=== PATIENT | female | born 1965 | race Caucasian/White ===

== ENCOUNTER 2023-06-20 09:49 | Emergency (ER) | payer OTHER, SELFPAY ==
[2023-06-20 09:50] VITALS: BP 90/76; PULSE 84; RESP 16; TEMP 36.7; O2SAT 97; BMI 26.6
[2023-06-20 09:52] VITALS: BP 90/76; PULSE 84; RESP 16; TEMP 36.7; O2SAT 98
--- NOTE | 2023-06-20 10:09 | CT_ITS ---
STUDY: CT ABDOMEN AND PELVIS WITH CONTRAST REASON FOR EXAM: Female, 58 years old. 3 week history of lower abdominal pain. Recurrent UTI. RADIATION DOSAGE (If Supplied By Facility): CTDIvol = ( 13.44 ) mGy, DLP = ( 832.93 ) mGycm TECHNIQUE: Transaxial images were obtained from the dome of the diaphragm to the symphysis pubis without oral contrast. Oral and amp; IV Gastrografin and amp; 100mL Isovue-300 was administered. Sagittal and coronal images were reconstructed. Individualized dose optimization techniques were used for this CT. COMPARISON: None. FINDINGS: Increased linear markings with areas of confluence at the lung bases more prominent on the left side. The visualized portions of the heart are within normal limits. Normal liver. I suspect tiny layering gallstones along the dependent portion of the gallbladder lumen. Normal spleen. Normal pancreas. Normal bilateral adrenal glands. Normal right kidney. Normal left kidney. Normal visualized stomach. Normal small intestine. Normal colon. The appendix is visualized and appears normal. Normal abdominal aorta. Normal inferior vena cava. Normal retroperitoneum. There is congestion of the mesenteric fat in the region of the root of the mesentery. Mild inflammatory changes seen in the jejunal loops in the left midabdomen. Normal urinary bladder. Diffuse heterogeneous enlargement of the uterus. There is a 6.2 cm x 4.7 cm complex mass in the fundal portion of uterus. This may represent a degenerating fibroid. A neoplastic process cannot be excluded. Correlation with pelvic ultrasound recommended. Small amount of free fluid is seen in the cul-de-sac. Normal abdominal wall. There are degenerative changes of the visualized lumbar spine. Minimal anterior listhesis of L5 on S1 without spondylolysis. Facet joint osteoarthritis. CT/Abdomen/Pelvis WITH Contrast IMPRESSION: Mild degree of atelectasis at the lung bases worse on the left side. Questionable small gallstones along the dependent portion of the gallbladder lumen. Heterogeneous enlargement of the uterus with complex mass in the region of the fundal portion. Correlation with pelvic sonogram is recommended. Small amount of free fluid in the cul-de-sac. Increased markings in the mesenteric fat of the root of the mesentery with the findings suggest mild inflammatory changes in the small bowel loops in the mid left abdomen. Electronically Signed: Anjel Campbell MD at 12:21 EDT ,
--- NOTE | 2023-06-20 10:10 | ED.VIS.GI ---
HPI HPI - GI History of Present Illness Chief Complaint: Abd Pain Informant: patient Abdominal Pain/Flank Pain Onset: Weeks (3) Context: Gradual Onset Timing: Waxes and wanes Quality: Aching and Dull Location: RLQ and LLQ Worsened by: - (Palpation) Relieved by: Nothing Nausea/Vomiting/Emesis GI Symptom: Positive for Nausea; Negative for Vomiting Diarrhea/Melena/Hematochezia GI Symptom: Negative for Diarrhea, Melena or Hematochezia Associated Symptoms Associated Symptoms: Positive for Dysuria; Negative for Frequency or Hematuria Narrative Narrative: Patient presents with abdominal pain that has been waxing and waning over the past 3 weeks. Patient states she originally went to the urgent care and was diagnosed with a urinary tract infection. Patient states her symptoms improved while she was taking the antibiotic. Patient states that after she completed the antibiotic, her symptoms started to gradually get worse again. Patient states her pain is mainly over the lower abdomen. Patient states it is worse with pressing on it. Patient states it is better with rest. Patient admits to some nausea but denies any vomiting. Patient denies any diarrhea, melena, or hematochezia. Patient admits to some mild dysuria. Patient denies any hematuria or frequency. PFSH PFSH Medical History no medical history no medical history Home Medications cephalexin 500 mg capsule 500 mg PO Q6 #28 CAPSULES 06/20/23 [Rx Last Taken Unknown] Allergy/AdvReac Type Severity Reaction Status Date / Time No Known Allergies Allergy Verified 06/20/23 09:53 Surgical History no surgical history no surgical history Social History Smoking Status: Never smoker ROS ROS ED Constitutional Constitutional ED: Reports fever(s) and subjective; Denies chills Eyes Eyes: Denies blurry vision or change in vision ENT ENT ED: Denies rhinorrhea or sore throat Cardiovascular Cardiovascular: Denies chest pain or palpitations Respiratory/Chest Respiratory/Chest: Denies cough or dyspnea Gastrointestinal Gastrointestinal: Reports abdominal pain and nausea; Denies diarrhea, melena or vomiting Genitourinary Genitourinary ED: Reports dysuria; Denies hematuria Musculoskeletal Musculoskeletal: Denies back pain or neck pain Integumentary Denies abscess or rash Neurologic Neurologic: Denies headache(s) or weakness Allergic/Immunologic Allergic/Immunologic ED: Denies mouth swelling or urticaria EXAM Physical Exam Const Vital Signs: 06/20/23 09:50 06/20/23 09:52 06/20/23 10:52 Temperature 98.1 F 98.1 F 97.6 F L Temperature Source Oral Temporal Temporal Pulse Rate 84 84 81 Respiratory Rate 16 16 14 Blood Pressure 90/76 90/76 133/71 H Blood Pressure Mean 80 80 91 Pulse Ox 97 98 100 Oxygen Delivery Method Room Air Room Air Room Air 06/20/23 11:50 06/20/23 13:00 Temperature Temperature Source Pulse Rate 81 81 Respiratory Rate 14 16 Blood Pressure 127/81 H 131/81 H Blood Pressure Mean 96 97 Pulse Ox 98 98 Oxygen Delivery Method Room Air Room Air Positive well nourished and well developed General Appearance ED: well developed and NAD HEENT Reports moist mucous membranes Neck supple and no JVD Resp normal respiratory effort and clear to auscultation bilaterally Effort and Inspection: Negative for respiratory distress Cardio regular rate and regular rhythm GI non-distended Palpation: soft and tender LLQ, RLQ, LUQ and suprapubic; Negative for guarding or rebound tenderness present Neuro CN's II-XII intact bilaterally, moves all extremities and no sensory deficits noted Sensorium / Orientation: alert Motor Exam: strength 5/5 throughout Psych mental status grossly normal and thought process normal MDM MDM MDM Narrative Medical decision making narrative: Differential diagnosis includes urinary tract infection, ovarian cyst, ureteral calculus, bowel obstruction, perforation, appendicitis, pancreatitis, and gastroenteritis. CT scan of the abdomen pelvis will be obtained to assess for appendicitis, bowel obstruction, perforation. CBC will be obtained to assess for leukocytosis and anemia. Comprehensive metabolic profile will be obtained to assess for hepatic function, renal function, and electrolyte abnormality. Lipase will be obtained to assess for pancreatitis. Urinalysis will be obtained to assess for urinary tract infection. Lab Data Attestation: I reviewed the patient's lab results. Lab results narrative: CBC was reviewed and was within normal limits. Comprehensive metabolic profile was reviewed and was essentially within normal limits. Lipase was reviewed and was normal at 21. Urinalysis was reviewed. Leukocyte esterase was 500 with 10-25 white blood cells and 4+ bacteria. Labs: Laboratory Results - last 24 hr 06/20/23 06/20/23 10:25 10:40 WBC 10.5 RBC 4.94 Hgb 13.8 Hct 42.5 MCV 86.0 MCH 27.9 MCHC 32.5 RDW Std Deviation 45.0 H RDW Coeff of Sneha 14.3 Plt Count 472 H MPV 10.0 Immature Gran % (Auto) 0.300 Neut % (Auto) 88.0 H Lymph % (Auto) 6.6 L Caswell % (Auto) 5.0 Eos % (Auto) 0.0 Baso % (Auto) 0.1 Absolute Neuts (auto) 9.2 H Absolute Lymphs (auto) 0.69 L Nucleated RBC % 0 Differential Comment SCANNED Sodium 138 Potassium 3.4 L Chloride 103 Carbon Dioxide 28.0 Anion Gap 7 BUN 19 H Creatinine 0.86 Estim Creat Clear Calc 77.25 Est GFR (MDRD) Af Amer 87 Est GFR (MDRD) Non-Af 72 BUN/Creatinine Ratio 22.1 H Glucose 146 H Calcium 9.4 Total Bilirubin 1.20 H AST 34 ALT 41 Alkaline Phosphatase 131 H Total Protein 7.8 Albumin 3.1 L Globulin 4.7 H Albumin/Globulin Ratio 0.7 L Lipase 21 Urine Color Yellow Urine Clarity Sl. Cloudy Urine pH 5.0 Ur Specific [place] 1.015 Urine Protein 30 H Urine Glucose (UA) Normal Urine Ketones Negative Urine Occult Blood 10 H Urine Nitrite Negative Urine Bilirubin 1 H Urine Urobilinogen 1 H Ur Leukocyte Esterase 500 H Urine RBC 0-5 SEEN Urine WBC 10-25 SEEN Ur Squamous Epith Cells 0-5 SEEN Urine Bacteria 4+ Urine Mucus 4+ Radiography Diagnostic Testing: Clinical Impression(s) from Imaging Studies Abdomen/Pelvis CT 06/20/23 10:09 IMPRESSION: Mild degree of atelectasis at the lung bases worse on the left side. Questionable small gallstones along the dependent portion of the gallbladder lumen. Heterogeneous enlargement of the uterus with complex mass in the region of the fundal portion. Correlation with pelvic sonogram is recommended. Small amount of free fluid in the cul-de-sac. Increased markings in the mesenteric fat of the root of the mesentery with the findings suggest mild inflammatory changes in the small bowel loops in the mid left abdomen. Electronically Signed: Anjel Campbell MD at 12:21 EDT , CT scan of the abdomen and pelvis was obtained. There is enlargement of the uterus with a likely uterine fibroid in the fundal portion. There is a small amount of free fluid in the cul-de-sac. There are some mild inflammatory changes in the small bowel loops of the left mid abdomen. There is no other acute abnormality noted. This was interpreted by the radiologist and was also independently reviewed by myself. Additional Tests and Interventions Additional Tests or Interventions: Urine culture was ordered. Treatment and Re-Evaluation :: Patient was given IV fluids, Zofran, and morphine. Patient was advised of her findings. Patient was feeling better on reevaluation. Patient was given a dose of Keflex here. Patient was given a prescription for Keflex. Patient was instructed to follow-up with her primary care physician in 5 to 7 days. Patient understood and was agreeable with the plan. All questions were answered. Discharge Plan Triage Chief Complaint: Abd Pain ED Provider: Petr Landaverde Dx/Rx/DC Orders Clinical Impression: Urinary tract infection, Uterine fibroid Instructions: ED Cystitis Female Adult Prescriptions: New cephalexin [cephalexin] 500 mg capsule 500 mg PO Q6 Qty: 28 0RF Primary Care Provider: Care Physician,No Primary Referrals: Zuleika Asher MD [Med Staff - Global Coordinator] - 5-7 Days Care Physician,No Primary [Primary Care Provider] - Disposition Disposition: Home, Self Care
[2023-06-20] MEDS: 0.9% Normal Saline (1000mL) 1,000 ML 1000 ML IV (10:33)
[2023-06-20 10:49] LABS: Color, Urine Yellow (Yellow); Glucose, Dipstick Normal (Normal); Ketone-Dipstick Negative (Negative); Leukocyte Esterase-Dipstick 500 /ul (Negative); Nitrite-Dipstick Negative (Negative); Occult Blood-Urine 10 /ul (Negative); Protein-Dipstick 30 mg/dl (Negative); Specific Gravity, Urine 1.015 (1.002-1.030); Urine Bilirubin Dipstick 1 mg/dL (Negative); Urine Clarity Sl. Cloudy (Clear); Urine Urobilinogen 1 mg/dl (Normal)
[2023-06-20 10:49] LABS: Absolute Lymphocyte Count 0.69 X10^3/uL (0.83-4.51); Absolute Neutrophil Count 9.2 X10^3/uL (2.0-7.7); Basophil# 0.01 X10^3/uL; Basophil% 0.1 % (0-1); Hematocrit 42.5 % (37-47); Hemoglobin 13.8 g/dL (12.0-15.0); Lymphocyte # 0.69 X10^3/ul (0.83-4.51); Lymphocyte % 6.6 % (19-41); Mean Corp Hgb Conc 32.5 g/dL (32-36); Mean Corpuscular Hgb 27.9 pg (27.0-32.0); Monocyte# 0.52 X10^3/uL; NRBC Flagged by Analyzer 0 % (0-5); Neutrophil # 9.21 X10^3/uL (2.7-7.7); POSITIVE MORPHOLOGY YES; Platelet Count 472 K/mm3 (150-450); RBC Distribution Width CV 14.3 % (11.6-14.6); Red Blood Count 4.94 M/mm3 (4.2-5.4); White Blood Count 10.5 K/mm3 (4.4-11.0)
[2023-06-20 10:52] VITALS: BP 133/71; PULSE 81; RESP 14; TEMP 36.4; O2SAT 100
[2023-06-20 10:54] LABS: Differential Indicated SCAN CRITERIA MET
[2023-06-20 11:02] LABS: Bacteria 4+ /hpf (None Seen); Mucous, Urine 4+ /hpf (<or=2+); Red Blood Cells-Urine 0-5 SEEN /hpf (0-5); Squamous Epithelial Cells - UA 0-5 SEEN /hpf (5-10); White Blood Cells 10-25 SEEN /hpf (0-5)
[2023-06-20 11:08] LABS: ALB/GLOB Ratio 0.7 RATIO (0.9-2.4); AST(SGOT) 34 U/L (15-37); Alanine Aminotransfer ALT/SGPT 41 U/L (13-56); Albumin, Serum 3.1 g/dL (3.2-5.0); Alkaline Phosphatase 131 U/L (45-117); Anion Gap 7 (5-15); BUN 19 mg/dL (7-18); BUN/Creat Ratio 22.1 RATIO (10-20); Calcium,Total 9.4 mg/dL (8.5-10.1); Chloride 103 mmol/L (98-107); Creatinine, Serum 0.86 mg/dL (0.55-1.02); EST Glomerular Filtration Rate 72 mL/min (>60); Est Glom Filt Rate - Afr Amer 87 mL/min (>60); Estimated Creatinine Clearance 77.25 ml/min; Globulin 4.7 g/dL (2.2-4.2); Glucose 146 mg/dL (74-106); Lipase 21 U/L (13-75); Potassium 3.4 mmol/L (3.5-5.1); Protein, Total 7.8 g/dL (6.4-8.2); Sodium Level 138 mmol/L (136-145)
[2023-06-20 11:21] LABS: Differential Comment SCANNED
[2023-06-20 11:50] VITALS: BP 127/81; PULSE 81; RESP 14; O2SAT 98
[2023-06-20 13:00] VITALS: BP 131/81; PULSE 81; RESP 16; O2SAT 98
[2023-06-20] MEDS: Cephalexin 500 MG Capsule PO (13:29)
[2023-06-20 13:30] VITALS: BP 145/77; PULSE 80; RESP 14; TEMP 36.8; O2SAT 98
== END 2023-06-20 13:31 | disposition home or self-care (01) ==
PROVIDERS: Emergency Provider Emergency Medicine; Visit Provider Emergency Medicine
DX: N39.0 Urinary tract infection, site not specified (principal); D25.9 Leiomyoma of uterus, unspecified; R11.0 Nausea
CPT/HCPCS: 74177; 80053; 81001; 83690; 85025; 87086; 87088; 96361; 96374; 96375; 99283; J7030; Q9967; A4216; J2405

== ENCOUNTER → 2023-06-28 | Outpatient (CLI) | payer SELFPAY | END | disposition home or self-care (01) | LOC: BFHLAB 09:14 → LABSPEC 09:22 | PROVIDERS: PCP Nurse Practitioner Family; Referring Provider Nurse Practitioner Family; Visit Provider Nurse Practitioner Family | DX: N39.0 Urinary tract infection, site not specified (principal) | CPT/HCPCS: 87086; 87088 ==

== ENCOUNTER → 2023-07-04 | Outpatient (CLI) | payer SELFPAY ==
--- NOTE | 2023-07-04 18:05 | US_ITS ---
STUDY: ULTRASOUND OF THE FEMALE PELVIS - COMPLETE REASON FOR EXAM: Female, 58 years old. Pelvic mass seen on prior CT scan. LMP: Patient is postmenopausal. TECHNIQUE: Transabdominal and Transvaginal TECHNICAL QUALITY: Adequate. COMPARISON: Comparison is made with prior CT scan of the abdomen and pelvis dated June 20, 2023. FINDINGS: The uterus is anteverted and is in a midline position. The uterus measures 9.4 cm x 7.9 cm x 6.2 cm. There is a Nabothian cyst of the cervix. The endometrium measures 4 mm in thickness, and is hyperechoic. There is evidence of a 1 cm x 0.6 cm x 0.4 cm endometrial polyp. Small amount of endometrial fluid is seen. 3 uterine fibroids are seen. The largest measures 3.2 cm x 3.1 cm x 2.8 cm. I.U.D. - The patient does not have an I.U.D. The right ovary is visualized. The right ovary measures 6 cm x 5.5 cm x 3.8 cm. There is a 4 cm x 3.7 cm x 3.3 cm septated cyst in the right ovary. There is no visualized right adnexal mass or complex lesion. There is normal arterial and normal venous vascularity. The left ovary is non-visualized. There is no fluid in the cul-de-sac. The pre void volume of the bladder was 124 ml. US/Pelvic (Non ) IMPRESSION: Enlarged fibroid uterus as described. Endometrial polyp and small fluid collection is seen within the endometrium. 4 cm x 3.7 cm x 3.3 cm septated cyst in the right ovary. Electronically Signed: Anjel Campbell MD at 14:38 EDT ,
== END | disposition home or self-care (01) ==
PROVIDERS: PCP Nurse Practitioner Family; Referring Provider Nurse Practitioner Family; Visit Provider Nurse Practitioner Family
DX: N85.8 Other specified noninflammatory disorders of uterus (principal)
CPT/HCPCS: 76856

== ENCOUNTER → 2023-08-02 | Outpatient (CLI) | payer SELFPAY | END | disposition home or self-care (01) | LOC: LABSPEC 13:13 | PROVIDERS: PCP Nurse Practitioner Family; Referring Provider Nurse Practitioner Family; Visit Provider Nurse Practitioner Family | DX: N39.0 Urinary tract infection, site not specified (principal) | CPT/HCPCS: 87086; 87088 ==

== ENCOUNTER → 2023-08-23 | Outpatient (CLI) | payer SELFPAY ==
--- NOTE | 2023-08-23 | CYSPIN_PTH ---
PATIENT: COLIN ALMEIDA LOC: [facility] U#:[id number] AGE/SX: 58/F ROOM: RE08/23/[address]: CIERRA Stephen : 1965 BED: DIS: 08/23/2023 SPEC #: [id number] RECD: 08/23/23 16:00 STATUS: ANSHU CORONATanesha #: [id number] DEONTE: 08/23/23 00:[address]: Latrice Calles DEPT: CYTOLOGY RECD BY: Prakash Bush Tissues: Urine Procedures: Pap Stain (control) Special Stain Group II Cytospin Fluid HEADER OPERATION: Not noted PRE-OP DIAGNOSIS: Hematuria TISSUE SUBMITTED: Urine for cytology DIAGNOSIS CYTOLOGY Urine for cytology (cytospin): Negative for high grade urothelial carcinoma (NHGUC), Callie System Category II. See comment. VICTORINO/ 08/25/2023 COMMENT Clinical correlation and appropriate follow up are necessary. The Callie System for urine cytology diagnostic categorization was used in the evaluation of this case. CYTOLOGY STUDY Slides are reviewed. CYTOLOGY GROSS Received is 35.5 ml of nannette-hazy fluid labeled with the patient's name and and designated per the requisition as urine. Submitted for cytology preparation. 08/25/2023 TC:5 CPT: 69745
[2023-08-23 17:50] LABS: Cytology, Body Fluid / CSF SEE PATHOLOGY REPORT
== END | disposition home or self-care (01) ==
PROVIDERS: PCP Nurse Practitioner Family; Referring Provider Nurse Practitioner Family; Visit Provider Nurse Practitioner Family
DX: R31.9 Hematuria, unspecified (principal)
CPT/HCPCS: 87086; 87088; 88108; 88313

== ENCOUNTER → 2023-09-19 | Outpatient (CLI) | payer SELFPAY ==
[2023-09-19 15:33] LABS: Absolute Lymphocyte Count 1.07 X10^3/uL (0.83-4.51); Absolute Neutrophil Count 11.4 X10^3/uL (2.0-7.7); Basophil# 0.04 X10^3/uL; Basophil% 0.3 % (0-1); Eosinophil# 0.07 X10^3/uL; Eosinophils% 0.5 % (0-5); Hematocrit 28.1 % (37-47); Hemoglobin 8.7 g/dL (12.0-15.0); Lymphocyte # 1.07 X10^3/ul (0.83-4.51); Mean Corpuscular Hgb 23.9 pg (27.0-32.0); Mean Corpuscular Volume 77.2 fL (81-99); Mean Platelet Vol. 9.6 fl (6.2-12.0); Monocyte# 0.62 X10^3/uL; Monocyte% 4.6 % (0-10); NRBC Flagged by Analyzer 0 % (0-5); Neutrophil # 11.44 X10^3/uL (2.7-7.7); Neutrophil % 85.5 % (47-70); Platelet Count 748 K/mm3 (150-450); RBC Distribution Width CV 16.5 % (11.6-14.6); RBC Distribution Width SD 46.1 fl (35.1-43.9); Red Blood Count 3.64 M/mm3 (4.2-5.4); White Blood Count 13.4 K/mm3 (4.4-11.0)
[2023-09-19 15:40] LABS: Vitamin B12 652 pg/mL (211-911)
[2023-09-19 15:45] LABS: ALB/GLOB Ratio 0.5 RATIO (0.9-2.4); AST(SGOT) 57 U/L (15-37); Alanine Aminotransfer ALT/SGPT 67 U/L (13-56); Alkaline Phosphatase 220 U/L (45-117); Anion Gap 8 (5-15); BUN 13 mg/dL (7-18); BUN/Creat Ratio 19.9 RATIO (10-20); Calcium,Total 8.6 mg/dL (8.5-10.1); Chloride 98 mmol/L (98-107); Creatinine, Serum 0.65 mg/dL (0.55-1.02); EST Glomerular Filtration Rate 99 mL/min (>60); Est Glom Filt Rate - Afr Amer 120 mL/min (>60); Ferritin 715 ng/mL (8-252); Globulin 4.3 g/dL (2.2-4.2); Glucose 105 mg/dL (74-106); Iron 11 ug/dL (50-170); Potassium 3.1 mmol/L (3.5-5.1); Protein, Total 6.3 g/dL (6.4-8.2); Sodium Level 137 mmol/L (136-145); T4 Free Direct 1.21 ng/dL (0.76-1.46); Thyroid Stim Hormone (TSH) 1.46 uIU/mL (0.358-3.74)
[2023-09-21 14:10] LABS: ANTINUCLEAR ANTIBODIES DIRECT Negative (Negative)
== END | disposition home or self-care (01) ==
LOC: BFHLAB 13:36
PROVIDERS: PCP Nurse Practitioner Family; Referring Provider Nurse Practitioner Family; Visit Provider Nurse Practitioner Family
DX: R53.83 Other fatigue (principal); Z83.2 Family history of diseases of the blood and blood-forming organs and certain disorders involving the immune mechanism
CPT/HCPCS: 36415; 80053; 82306; 82607; 82728; 83540; 84439; 84443; 85025; 86038; 86225; 86235

== ENCOUNTER → 2023-09-25 | Outpatient (CLI) | payer SELFPAY ==
--- NOTE | 2023-09-25 07:19 | CT_ITS ---
STUDY: CT CHEST, ABDOMEN T PELVIS WITH CONTRAST REASON FOR EXAM: Female, 58 years old. ABNORMAL LIVER ENZYMES NEW ONSENT ANEMIA, COUGH, FATIGUE RADIATION DOSAGE (If Supplied By Facility): CTDIvol = ( 11.46 ) mGy, DLP = ( 1050.37 ) mGycm TECHNIQUE: Transaxial imaging was performed following intravenous administration of Oral and amp;amp; IV Readi-CAT and amp;amp; 100mL Isovue-300. Multiplanar coronal and sagittal images were reformatted. Individualized dose optimization techniques were used for this CT. COMPARISON: Comparison is made with prior CT scan abdomen pelvis dated June 20, 2023. FINDINGS: CHEST There is a moderate-sized right pleural effusion with compressive atelectasis in the right lower lobe. Calcified granuloma in the posterior aspect of the right upper lobe. No coronary calcification is seen. Normal mediastinum. Normal hilar regions. Normal unenhanced pulmonary arteries. Normal aorta arch and descending thoracic aorta. There are multi-level degenerative changes of the thoracic spine. Multiple hypodense nodules are seen scattered throughout the right and left lobes of the liver suggestive of metastatic deposits. ABDOMEN There now is evidence of a 7.8 cm x 7.3 cm x 6.7 cm complex mass in the posterior superior aspect of the right lobe of the liver. A similar appearing heterogeneous mass measuring 6 cm x 4.9 cm is seen in the inferior lateral aspect of the right lobe of the liver. Metastatic deposits should be ruled out. The gallbladder is contracted. Normal spleen. Normal pancreas. Normal bilateral adrenal glands. Normal right kidney. Normal left kidney. Normal visualized stomach. Normal small intestine. Normal colon. The appendix is visualized and appears normal. Normal abdominal aorta. Normal inferior vena cava. There is small retroperitoneal lymphadenopathy with enlarged nodes no greater than 10mm in the short axis diameter. Normal abdominal wall. There are degenerative changes of the visualized lumbar spine. PELVIS Normal urinary bladder. Since prior study, there has been progressive increase in size of the complex mass in the right hemipelvis. A tiny air bubble seen along the anterior aspect of the mass. This may represent either a complex mass in the right ovary adjacent to the uterus. Heterogeneous appearance of the uterus with calcification. There is no pelvic fluid. There is no pelvic lymphadenopathy or mass lesion. CT/CT Chest, Abd, Pel w/Contrast IMPRESSION: Moderate size right pleural effusion with compressive atelectasis in the right lower lobe. New hepatic lesions as described. Metastatic deposits should be ruled out. Aggressive increase in size and heterogeneity of the right pelvic mass. An ovarian carcinoma should be ruled out. Electronically Signed: Anjel Campbell MD at 8:56 EDT ,
== END | disposition home or self-care (01) ==
LOC: CT 07:18
PROVIDERS: PCP Nurse Practitioner Family; Referring Provider Nurse Practitioner Family; Visit Provider Nurse Practitioner Family
DX: R74.8 Abnormal levels of other serum enzymes (principal); D64.9 Anemia, unspecified; R79.89 Other specified abnormal findings of blood chemistry; R53.83 Other fatigue; R05.9 Cough, unspecified
CPT/HCPCS: 71260; 74177; Q9967

== ENCOUNTER 2023-10-05 11:38 | Inpatient (IN) | payer SELFPAY ==
[2023-10-05] VITALS (11 sets, daily range): BP systolic 123–148; BP diastolic 66–105; PULSE 98–127; RESP 16–30; TEMP 36.5–38.3; O2SAT 92–96; BMI 23.1; BMI 23.6
--- NOTE | 2023-10-05 11:45 | EKG12_ITS ---
Test Reason : GENERAL Blood Pressure : / mmHG Vent. Rate : 102 BPM Atrial Rate : 102 BPM P-R Int : 136 ms QRS Dur : 078 ms QT Int : 350 ms P-R-T Axes : 066 -10 048 degrees QTc Int : 456 ms Sinus tachycardia Otherwise normal ECG No previous ECGs available Confirmed by ASHLEY KNIGHT, MARGARITA ([id number]), photograph editor JOSÉ MIGUEL HARPER ([id number]) on 10/13/2023 7:25:51 AM Referred By: Confirmed By:MILAD RAMIREZ MD
--- NOTE | 2023-10-05 11:49 | ED.RN ---
NO OLD EKGS
--- NOTE | 2023-10-05 11:56 | CT_ITS ---
STUDY: CT ABDOMEN AND PELVIS WITH CONTRAST REASON FOR EXAM: Female, 58 years old. Fever, suspect liver abscess, sepsis RADIATION DOSAGE (If Supplied By Facility): CTDIvol = ( 10.23 ) mGy, DLP = ( 586.14 ) mGycm TECHNIQUE: Transaxial images were obtained from the dome of the diaphragm to the symphysis pubis without oral contrast. IV 100mL Isovue-300 was administered. Sagittal and coronal images were reconstructed. Individualized dose optimization techniques were used for this CT. COMPARISON: Comparison is made with prior study dated June 20, 2023. FINDINGS: Moderate size right pleural effusion with right basilar atelectasis. Increased markings in the right middle lobe suggestive of atelectasis. The visualized portions of the heart are within normal limits. There are multiple accidents masses in the liver with several areas of the cystic changes suggestive of the hepatic abscesses. The largest measures 7.7 cm x 8 cm. This was recently diagnosed with the CT scan guided biopsy. The gallbladder is contracted. A tiny gallstone is seen within it. Normal spleen. Normal pancreas. Normal bilateral adrenal glands. Normal right kidney. Normal left kidney. Normal visualized stomach. Normal small intestine. Normal colon. The appendix is visualized and appears normal. Normal abdominal aorta. Normal inferior vena cava. Increased markings are seen within the omental and mesenteric fat. This may represent omental metastasis. A Pal catheter is seen within the urinary bladder. The urinary bladder is empty. There is a 7.9 cm x 6.7 cm predominantly cystic mass in the right adnexa. Tiny air bubbles are seen along its anterior aspect. Normal abdominal wall. Normal osseous structures. CT/Abdomen/Pelvis W IV Cont ONLY IMPRESSION: Findings suggestive of abscesses in the liver as described. Several tiny cystic changes are seen within the abscesses. Contracted gallbladder with a tiny stone. Complex mass in the right adnexa. Right pleural effusion with underlying atelectasis. Electronically Signed: Anjel Campbell MD at 13:37 EDT ,
--- NOTE | 2023-10-05 11:56 | RAD_ITS ---
STUDY: X-RAY CHEST REASON FOR EXAM: Female, 58 years old. Tachypnea, hypoxia TECHNIQUE: AP and lateral views of the chest. COMPARISON: None. FINDINGS: EKG electrodes are seen. Moderate size right pleural effusion with right basilar infiltration and/or atelectasis. Normal size heart. Normal mediastinum and ruthie. Normal visualized pulmonary arteries. Normal visualized aortic arch and descending thoracic aorta. Normal visualized thoracic spine. Normal visualized ribs, clavicles, and shoulders. There is no demonstrated abnormality of the visualized soft tissue structures of the upper abdomen. RAD/Chest PA and Lateral IMPRESSION: Moderate amount of right pleural effusion with right basilar infiltration and/or atelectasis. Electronically Signed: Anjel Campbell MD at 14:01 EDT ,
[2023-10-05 12:22] LABS: Absolute Lymphocyte Count 3.24 X10^3/uL (0.83-4.51); Absolute Neutrophil Count 14.3 X10^3/uL (2.0-7.7); Basophil# 0.06 X10^3/uL; Basophil% 0.3 % (0-1); Eosinophil# 0.05 X10^3/uL; Eosinophils% 0.3 % (0-5); Hematocrit 23.8 % (37-47); Hemoglobin 7.3 g/dL (12.0-15.0); Lymphocyte # 3.24 X10^3/ul (0.83-4.51); Lymphocyte % 16.7 % (19-41); Mean Corp Hgb Conc 30.7 g/dL (32-36); Mean Corpuscular Hgb 23.6 pg (27.0-32.0); Mean Platelet Vol. 9.2 fl (6.2-12.0); Monocyte# 1.33 X10^3/uL; Monocyte% 6.8 % (0-10); NRBC Flagged by Analyzer 0 % (0-5); Neutrophil # 14.32 X10^3/uL (2.7-7.7); Neutrophil % 73.7 % (47-70); Platelet Count 557 K/mm3 (150-450); RBC Distribution Width CV 18.1 % (11.6-14.6); RBC Distribution Width SD 49.6 fl (35.1-43.9); Red Blood Count 3.09 M/mm3 (4.2-5.4); White Blood Count 19.4 K/mm3 (4.4-11.0)
--- NOTE | 2023-10-05 12:23 | EDS_ITS ---
HPI History of Present Illness Chief Complaint: Abscess Detail of Chief Complaint: Hepatic abscess Informant: patient, family and other Onset/Context/Timing Onset: Today (Scheduled for a liver biopsy. According to nurse practitioner Dr. Li, the pathologist states findings consistent with abscess not malignancy) Context: - (Unknown) Timing: - (Patient has no complaint of pain) Quality: Generalized weakness and fatigue Location: Generalized Current Severity: Patient has no abdominal complaints. Worsened by: Unknown Relieved by: Unknown Associated Symptoms Associated Symptoms: Patient presently denies shortness of breath. She was hypoxic. Narrative Narrative: Patient is a 58-year-old woman diagnosed with ovarian cancer. CT obtained June 03, 2023 revealed mild degree of atelectasis at the lung bases worse on the left. There is concern for gallstone. Heterogeneous enlargement of the uterus with complex mass in the region of the fundus. Small amount of fluid noted in the cul-de-sac. There is also increased markings in the mesenteric fat at the root of the mesentery with findings suggestive of mild inflammatory changes. September 24 CT of the abdomen and pelvis revealed a moderate size right pleural effusion with compressive atelectasis in the right lower lobe and a new hepatic lesion and metastatic deposits need to be ruled out. There is an increased creased size and heterogenicity of the right pelvic mass which was described as aggressive. Concern for ovarian cancer. Patient was scheduled for biopsy of liver. Mellycalli Gonsalveswilliams's documentation was reviewed. Fluid that was removed was examined by Dr. Li, pathologist. She commented that findings are consistent with abscess and not malignancy. Of note patient's white count on September 26 was 21,000 with shift. Patient was placed on oxygen because she was hypoxic. This may be due to the fact that she has compressive atelectasis due to significant effusion on the right. This correlates with my exam which revealed diminished breath sounds on the right with decreased vocal fremitus questionable egophony. Patient denies fever or chills. Patient denies subjective fever. Patient denies shortness of breath. Patient denies cough. Patient denies abdominal pain, back pain or flank pain. Patient denies dysuria, frequency, urgency or hematuria. Patient denies color of her urine. Prior similar symptoms: Yes Recent Illness/Hospitalization: Yes [facility] Medical History Ovarian mass Pleural effusion Metastasis to liver Abdominal mass Home Medications ?Medication ?Instructions ?Recorded ?Last Taken ?Type biotin 1 mg capsule 1 mg PO DAILY 09/26/23 Unknown History cholecalciferol (vitamin D3) 50 50 mcg PO DAILY 09/26/23 Unknown History mcg (2,000 unit) capsule lactobacillus combination no.9 4 4,000 mmu cells PO DAILY 09/26/23 Unknown History billion cell capsule (Adult 50 Plus Probiotic) rhubarb root extract 4 mg tablet 4 mg PO DAILY 09/26/23 Unknown History (Estroven Complete Menopause Relief) turmeric 400 mg capsule 400 mg PO DAILY 09/26/23 Unknown History ferrous sulfate 325 mg (65 mg 325 mg PO BID 09/27/23 Unknown History iron) tablet (FeroSul) hormone balance 2 tab PO DAILY 09/27/23 Unknown History potassium 99 mg tablet 99 mg PO BID 09/27/23 Unknown History magnesium citrate 10/05/23 Unknown History Allergy/AdvReac Type Severity Reaction Status Date / Time No Known Allergies Allergy Verified 10/05/23 11:39 Family History Mother Cancer uterine Social History Smoking Status: Never smoker alcohol intake: never substance use type: does not use what type of physical activity do you participate in: walking ROS ROS ED Constitutional Constitutional ED: Reports weight loss; Denies chills, fever(s), subjective or sweats Eyes Eyes: Denies blurry vision or change in vision ENT ENT ED: Denies ear pain, rhinorrhea or sore throat Cardiovascular Cardiovascular: Denies chest pain, orthopnea, palpitations or paroxysmal nocturnal dyspnea Respiratory/Chest Respiratory/Chest: Reports dyspnea and dyspnea on exertion; Denies cough, orthopnea or paroxysmal nocturnal dyspnea Gastrointestinal Gastrointestinal: Denies abdominal pain, constipation, diarrhea, melena, nausea or vomiting Genitourinary Genitourinary ED: Denies dysuria, hematuria or urinary frequency Musculoskeletal Musculoskeletal: Denies arthralgias, back pain or myalgias Integumentary Reports other Details: Family commented that she appears pale. She I also believe she may be jaundiced. ; Denies rash Neurologic Neurologic: Reports weakness; Denies headache(s) or paresthesias Endocrine Endocrinology: Denies cold intolerance or heat intolerance Hematologic/Lymphatic Hematologic/Lymphatic: Reports systems reviewed and no addt'l complaints, except as documented EXAM Physical Exam Const Vital Signs: 10/05/23 11:39 10/05/23 11:44 10/05/23 11:45 Temperature 99.3 F H 99.3 F H Temperature Source Temporal Temporal Pulse Rate 99 99 Respiratory Rate 23 H 24 H Blood Pressure 127/79 H 123/75 H Blood Pressure Mean 95 91 Pulse Ox 94 93 Oxygen Delivery Method Room Air Room Air Room Air 10/05/23 12:44 10/05/23 13:00 10/05/23 13:39 Temperature 98 F 98 F Temperature Source Tympanic Tympanic Pulse Rate 103 H 102 H 102 H Respiratory Rate 30 H 30 H 28 H Blood Pressure 128/71 H 128/71 H 143/82 H Blood Pressure Mean 90 90 102 Pulse Ox 93 92 92 Oxygen Delivery Method Room Air Room Air Room Air 10/05/23 14:00 Temperature 97.8 F Temperature Source Tympanic Pulse Rate 102 H Respiratory Rate 26 H Blood Pressure 148/66 H Blood Pressure Mean 93 Pulse Ox 93 Oxygen Delivery Method Room Air Positive well nourished and well developed Constitutional Narrative: Patient appears ill. She is pale. She appears also jaundiced. Patient has abrasions to the dorsal side of her right hand and face. This was due to blunt trauma a couple of weeks ago. General Appearance ED: well developed and pallor HEENT Reports dry mucous membranes HEENT Narrative: Head is atraumatic normocephalic. Ears normal. Nares patent. Posterior pharynx unremarkable. Mouth ED: Yes dry mucous membranes Mouth: dry mucous membranes Eyes PERRL and EOMs intact bilaterally General Eye ED: Yes pale conjunctiva and scleral icterus Neck no lymphadenopathy, supple and no JVD Chest Wall inspection of chest normal and palpation of chest normal Resp No normal respiratory effort and No clear to auscultation bilaterally Resp Narrative: Markedly diminished breath sounds on the right. There is decreased vocal fremitus. Question of egophony. Breath sounds are much clear on the left. There is slight rales at the base on the left. There is no egophony noted. Cardio regular rate, regular rhythm, S1 normal heart sound, S2 normal heart sound and no murmurs GI normal to inspection, nondistended, normoactive bowel sounds, non-tender, non- distended and no masses; Negative for hepatosplenomegaly Back/Spine no CVA tenderness Extremity Extremity Narrative: Healing wounds from abrasions. There is no evidence infection. Neuro oriented x3, CN's II-XII intact bilaterally and no sensory deficits noted Neuro Narrative: Patient is awake but not alert. Psych mental status grossly normal Skin no rashes or lesions noted, No no wounds and No skin turgor normal General Skin Exam: jaundice and pallor; Negative for elasticity normal MDM MDM MDM Narrative Medical decision making narrative: Spoke to Mary radiology nurse. She informed me that Dr. Mccormick is concerned the samples that submitted for analysis did not reveal malignancy but abscess. Family had this multiple questions. They were answered. Patient would like to be transferred to the [facility] since her care is through the [facility]. Differential is abscess due to hematologic spread versus malignancy with necrosis and abscess. Sepsis order set was initiated. Patient started on piperacillin and tazobactam since she has no allergy to penicillin. Prior labs are reviewed. As noted her white count was elevated September 26. History & Record Review Additional record(s) reviewed:: Prior outpatient record (Documented HPI wilbur rative) and Prior labs (Documented under the laboratory data portion of the EMR) Lab Data Attestation: I reviewed the patient's lab results. Lab results narrative: White count is elevated 19.4 thousand with shift. There is no bandemia. Patient has microcytic anemia with an H&H of 7.3 and 23.8 with an MCV of 77. Patient is on iron. She states her stool has changed in color since she has been taking the iron.H&H on September 26 was 28.6 and 27.8. Electrolyte panel reveals a potassium of 2.6. CO2 was elevated at 35. BUN to creatinine ratio is 25:1. Liver enzymes were elevated AST and ALT were 48 and 58 respectively. Alkaline phosphatase elevated 206. Patient's albumin is 1.9. This would be concerning for malnourishment. UA reveals a's of gravity 1.020. Urine slightly cloudy. Macros positive for protein, ketones, urobilinogen and leukoesterase. Negative for nitrites and blood. Microscopic is pending. Coags reveal slight elevation of PT and PTT of 16.5 and 37.7. Lactate is normal. UA reveals bacteria. This is asymptomatic. Culture was sent. Labs: Laboratory Results - last 24 hr 10/05/23 10/05/23 12:10 12:25 WBC 19.4 H RBC 3.09 L Hgb 7.3 L Hct 23.8 L MCV 77.0 L MCH 23.6 L MCHC 30.7 L RDW Std Deviation 49.6 H RDW Coeff of Sneha 18.1 H Plt Count 557 H MPV 9.2 Immature Gran % (Auto) 2.200 H Neut % (Auto) 73.7 H Lymph % (Auto) 16.7 L Elliott % (Auto) 6.8 Eos % (Auto) 0.3 Baso % (Auto) 0.3 Absolute Neuts (auto) 14.3 H Absolute Lymphs (auto) 3.24 Nucleated RBC % 0 PT 16.5 H INR 1.3 APTT 37.7 H Sodium 138 Potassium 3.2 L Chloride 102 Carbon Dioxide 30.0 Anion Gap 6 BUN 11 Creatinine 0.40 L Estim Creat Clear Calc 150.90 Est GFR (MDRD) Af Amer 209 Est GFR (MDRD) Non-Af 173 BUN/Creatinine Ratio 27.3 H Glucose 105 Lactic Acid 0.8 Calcium 8.1 L Total Bilirubin 0.80 AST 52 H ALT 58 H Alkaline Phosphatase 199 H Total Protein 5.8 L Albumin 1.7 L Globulin 4.1 Albumin/Globulin Ratio 0.4 L Urine Color Yellow Urine Clarity Sl. Cloudy Urine pH 6.0 Ur Specific [place] 1.020 Urine Protein 30 H Urine Glucose (UA) Normal Urine Ketones 5 H Urine Occult Blood Negative Urine Nitrite Negative Urine Bilirubin Negative Urine Urobilinogen 1 H Ur Leukocyte Esterase 25 H Urine RBC 0 SEEN Urine WBC 0-5 SEEN Ur Squamous Epith Cells 0 SEEN Urine Bacteria 3+ Urine Mucus 0 SEEN Radiography Chest X-Ray - ED: 2 View and Read by ED Physician (2 view x-ray of the chest reveals a moderate to large right pleural effusion. Cardiac silhouette on the right is obscured because of the effusion. The hilum appears normal. [place] structures unremarkable. The left lung parenchyma is unremarkable.) Diagnostic Testing: Clinical Impression(s) from Imaging Studies Abdomen/Pelvis CT 10/05/23 11:56 IMPRESSION: Findings suggestive of abscesses in the liver as described. Several tiny cystic changes are seen within the abscesses. Contracted gallbladder with a tiny stone. Complex mass in the right adnexa. Right pleural effusion with underlying atelectasis. Electronically Signed: Anjel Campbell MD at 13:37 EDT , Chest X-Ray 10/05/23 11:56 IMPRESSION: Moderate amount of right pleural effusion with right basilar infiltration and/or atelectasis. Electronically Signed: Anjel Campbell MD at 14:01 EDT , EKG Initial EKG: Attestation: I personally reviewed and interpreted this EKG as follows: Interpretation: Sinus Tachycardia (Rate is 102. Other than sinus tachycardia EKG is normal. The CA interval is under 36 ms. QRS duration 78 ms. QT duration 3050 ms. [place] is normal.) Management Discussion w/another healthcare provider: Hospitalist (Hospitalist was paged for admission since patient has findings consistent with abscess. Patient has a phlegmon at this time. There is nothing that is amendable to drainage per Dr. Daniel.), Manager Process (Spoke to Dr. Davila. Dr. Davila said this is an IR issue. There is no need for surgical intervention. She agrees there is nothing at this time that can be drained. Will repaged the hospitalist) and Radiologist Treatment and Re-Evaluation :: Dr. Radford requested that I speak with the surgeon. For this reason Dr. Davila was paged. Critical Care Time Critical Care Time: Yes Critical care time (excluding procedures): 30-74 minutes (31), Including time spent: (Spoke with nurse practitioner regarding biopsy. Read nurse practitioner's note. History, physical, documentation, independent to rotation laboratory results, review of prior records), Discussing w/Patient &/or Family/Salesperson [employer] (Spent 10 to 15 minutes with patient and family answering questions explaining results and possible need for transfer), Discussing w /Consultants (Radiologist, surgeon and hospitalist) and Arranging Admission or Transfer Discharge Plan Triage Chief Complaint: Abscess ED Provider: John Velasco Dx/Rx/DC Orders Clinical Impression: Abscess of liver, Sepsis without acute organ dysfunction, Sinus tachycardia, Hypoxia, Pleural effusion, right, Ovarian cancer, Atelectasis of right lung Prescriptions: No Action hormone balance 2 tab PO DAILY potassium 99 mg tablet 99 mg PO BID ferrous sulfate [FeroSul] 325 mg (65 mg iron) tablet 325 mg PO BID Adult 50 Plus Probiotic 4 billion cell capsule 4,000 mmu cells PO DAILY Rx Instructions: administer with a meal biotin 1 mg capsule 1 mg PO DAILY Estroven Cmplt Menopause Rlf 4 mg tablet 4 mg PO DAILY turmeric 400 mg capsule 400 mg PO DAILY cholecalciferol (vitamin D3) 50 mcg (2,000 unit) capsule 50 mcg PO DAILY magnesium citrate Patient Comments: strength unknown, states it is drops Primary Care Provider: Latrice Calles Referrals: Latrice Calles, DIRECTOR TRADING-C [Primary Care Provider] - Print Language: Yoruba
[2023-10-05] MEDS: Piperacil/Tazobactam 4.5 GM in 0.9% Normal Saline (100mL MB+) 100 ML IV (12:25)
[2023-10-05 12:30] LABS: Mucous, Urine 0 SEEN /hpf (<or=2+); Red Blood Cells-Urine 0 SEEN /hpf (0-5); Squamous Epithelial Cells - UA 0 SEEN /hpf (5-10)
[2023-10-05 12:32] LABS: Color, Urine Yellow (Yellow); Glucose, Dipstick Normal (Normal); Ketone-Dipstick 5 mg/dl (Negative); Leukocyte Esterase-Dipstick 25 /ul (Negative); Nitrite-Dipstick Negative (Negative); Occult Blood-Urine Negative /ul (Negative); Protein-Dipstick 30 mg/dl (Negative); Urine Bilirubin Dipstick Negative (Negative); Urine Clarity Sl. Cloudy (Clear); Urine Urobilinogen 1 mg/dl (Normal)
[2023-10-05 12:33] LABS: International Normalized Ratio 1.3; Prothrombin Time (Protime)PT. 16.5 SECONDS (11.7-14.9)
[2023-10-05 12:34] LABS: Partial Thromboplast Time 37.7 Seconds (24.1-36.2)
[2023-10-05 12:49] LABS: Lactic Acid 0.8 mmol/L (0.4-1.9)
[2023-10-05 12:51] LABS: ALB/GLOB Ratio 0.4 RATIO (0.9-2.4); AST(SGOT) 52 U/L (15-37); Alanine Aminotransfer ALT/SGPT 58 U/L (13-56); Albumin, Serum 1.7 g/dL (3.2-5.0); Alkaline Phosphatase 199 U/L (45-117); Anion Gap 6 (5-15); BUN 11 mg/dL (7-18); BUN/Creat Ratio 27.3 RATIO (10-20); Calcium,Total 8.1 mg/dL (8.5-10.1); Chloride 102 mmol/L (98-107); EST Glomerular Filtration Rate 173 mL/min (>60); Est Glom Filt Rate - Afr Amer 209 mL/min (>60); Globulin 4.1 g/dL (2.2-4.2); Glucose 105 mg/dL (74-106); Potassium 3.2 mmol/L (3.5-5.1); Protein, Total 5.8 g/dL (6.4-8.2); Sodium Level 138 mmol/L (136-145)
[2023-10-05 12:52] LABS: Bacteria 3+ /hpf (None Seen); White Blood Cells 0-5 SEEN /hpf (0-5)
--- NOTE | 2023-10-05 14:45 | HP.PCM.HOS_ITS ---
HPI - General General Date of Admission: 10/05/23 Date of Service: 10/05/23 Chief Complaint: Abscess HPI Narrative COLIN MORENO, is a 58 F who presented to the emergency department at [facility] on 10/05/[address]-guided liver biopsy for what was thought to be metastasis and found to be purulent drainage suspicious of abscess. She underwent biopsy and the preliminary pathology indicated the findings were consistent with abscess not malignancy. Evidently, Ms Moreno originally presented in May 2019 for what was thought to be a recurrent urinary tract infections and a CT of the abdomen pelvis was ordered and found heterogeneous enlargement of the uterus with a complex mass in the region of the fundal portion of the uterus as well as increased markings in the mesenteric fat pad of the root of the mesentery and inflammatory changes in the small bowel loops. Subsequent ultrasound was performed in June 2023 and found an enlarged fibroid uterus with an endometrial polyp and a small fluid collection along with a right septated cysts in the ovary. CT of the chest abdomen pelvis was performed in September 2023 at which time she was found to have a moderate right- sided pleural effusion with compressive atelectasis in the right lower lobe, new hepatic lesions and metastatic deposits were needed to be ruled out along with aggressive increased size and heterogenicity of the right pelvic mass suspicious for ovarian carcinoma. A CEA 125 was performed on 09/27/2023 and found to be markedly elevated at 116.3. She was seen by oncology (Dr. Ovalles) on September [address]-guided liver biopsy to confirm diagnosis was ordered. Further management recommendations were contingent on pathologies however if this was ovarian in origin referral to [facility] was to be considered after induction phase with systemic therapy. Liver biopsy was performed today as noted above which resulted in her referral to the emergency department. Unfortunately, it does not appear that cultures were sent from the liver biopsy today. Patient did indicate that she would not come to the emergency department today if she was not instructed to if she seems to be feeling okay otherwise. She does admit to having a 20 pound weight loss since May 2023. Vital signs on presentation showed temperature of 99.3, heart rate 99, respiratory was 23, blood pressure is 127/79 oxygen saturation was 94% on room air. Tmax in the emergency department was 99.3. Her CBC showed a marked leukocytosis with a white count of 19.4, microcytic anemia with a hemoglobin of 7.3 and an MCV of 77. She has a thrombocytosis with a platelet count of 557,000. She has a left shift with 73.7% neutrophilia. Coags were abnormal with mild elevation in PT, INR, and PTT likely indicative of her liver process. Her chemistry panel showed mild hypokalemia with potassium of 3.2 but was otherwise unremarkable. Liver functions were elevated mildly but appear to be stable when compared to recent laboratory data. Her UA shows bacteria but no white cells and the patient is asymptomatic with regards to urinary symptoms. CT of the abdomen pelvis have findings suggestive of abscesses in the liver with several tiny cystic changes within these abscesses, contracted gallbladder, complex mass in the right adnexa as well as a right pleural effusion with underlying atelectasis. Chest x-ray shows a moderate right pleural effusion. [facility] Medical History (Updated 10/05/23 @ 15:56 by Laurie Perez) Non-smoker Migraines Ovarian mass Pleural effusion Metastasis to liver Abdominal mass Home Medications ?Medication ?Instructions ?Recorded ?Last Taken ?Type biotin 1 mg capsule 1 mg PO DAILY 09/26/23 Unknown History cholecalciferol (vitamin D3) 50 50 mcg PO DAILY 09/26/23 Unknown History mcg (2,000 unit) capsule lactobacillus combination no.9 4 4,000 mmu cells PO DAILY 09/26/23 Unknown History billion cell capsule (Adult 50 Plus Probiotic) rhubarb root extract 4 mg tablet 4 mg PO DAILY 09/26/23 Unknown History (Estroven Complete Menopause Relief) turmeric 400 mg capsule 400 mg PO DAILY 09/26/23 Unknown History ferrous sulfate 325 mg (65 mg 325 mg PO BID 09/27/23 Unknown History iron) tablet (FeroSul) hormone balance 2 tab PO DAILY 09/27/23 Unknown History potassium 99 mg tablet 99 mg PO BID 09/27/23 Unknown History magnesium citrate 10/05/23 Unknown History Allergy/AdvReac Type Severity Reaction Status Date / Time No Known Allergies Allergy Verified 10/05/23 11:39 Family History Mother Cancer uterine Social History Smoking Status: Never smoker alcohol intake: never substance use type: does not use what type of physical activity do you participate in: walking ROS Constitutional Constitutional: Reports change in weight; Denies anorexia, chills, fatigue, fever(s), malaise, night sweats, weakness or other Eyes Eyes: Denies blurry vision, change in eye color, change in vision, discharge from eye(s), double vision, erythema, eye pain, loss of vision or other ENT HEENT: Denies abnormal hearing, dysphagia, ear pain, epistaxis, headache(s), hearing loss, nasal congestion, nasal discharge, post nasal drip, sinus pressure, sore throat or other Cardiovascular Cardiovascular: Denies chest pain, claudication, dyspnea on exertion, edema, lightheadedness, orthopnea, palpitations, paroxysmal nocturnal dyspnea, rapid heart rate, syncope or other Respiratory/Chest Respiratory/Chest: Denies cough, dyspnea, excessive phlegm production, hemoptysis, productive cough, shortness of breath at rest, shortness of breath with exertion, wheezing or other Gastrointestinal Gastrointestinal: Denies abdominal pain, coffee ground emesis, constipation, diarrhea, dyspepsia, hematemesis, hematochezia, loose stools, melena, nausea, vomiting or other Genitourinary Genitourinary: Denies burning urination, difficulty urinating, dysuria, hematuria, nocturia, urinary frequency, urinary hesitancy, urinary incontinence, urinary urgency or other Musculoskeletal Musculoskeletal: Denies arthralgias, back pain, joint pain, joint stiffness, joint swelling, myalgias, neck pain or other Neurologic Neurologic: Denies abnormal gait, abnormal speech, confusion, disequilibrium, dizziness, focal weakness, headache(s), numbness, paresthesias, seizure-like activity, seizures, syncope, tingling, tremor(s) or other Psychiatric Psychiatric: Denies anxiety, depression, homicidal ideation, suicidal ideation or other Endocrine Endocrinology: Denies change in body appearance, cold intolerance, excessive sweating, heat intolerance, polydipsia, polyuria or other Hematologic/Lymphatic Hematologic/Lymphatic: Denies anemia, easy bleeding, easy bruising, lymphadenopathy or other Allergic/Immunologic Allergic/Immunologic: Denies rhinitis, hives, eczemia, asthma or other Vital Signs Vital Signs Vital Signs: 10/05/23 11:39 10/05/23 11:44 10/05/23 11:45 Temperature 99.3 F H 99.3 F H Temperature Source Temporal Temporal Pulse Rate 99 99 Respiratory Rate 23 H 24 H Blood Pressure 127/79 H 123/75 H Blood Pressure Mean 95 91 Pulse Ox 94 93 Oxygen Delivery Method Room Air Room Air Room Air 10/05/23 12:44 10/05/23 13:00 10/05/23 13:39 Temperature 98 F 98 F Temperature Source Tympanic Tympanic Pulse Rate 103 H 102 H 102 H Respiratory Rate 30 H 30 H 28 H Blood Pressure 128/71 H 128/71 H 143/82 H Blood Pressure Mean 90 90 102 Pulse Ox 93 92 92 Oxygen Delivery Method Room Air Room Air Room Air 10/05/23 14:00 Temperature 97.8 F Temperature Source Tympanic Pulse Rate 102 H Respiratory Rate 26 H Blood Pressure 148/66 H Blood Pressure Mean 93 Pulse Ox 93 Oxygen Delivery Method Room Air Weight Weight: 67.1 kg Body Mass Index (BMI) 23.1 Physical Exam Const alert, oriented x3, no apparent distress and average body habitus Constitutional Narrative: Middle-aged, white female, lying in bed, family at bedside, currently appears comfortable, does not look toxic General Appearance: cooperative HEENT normocephalic, head/scalp atraumatic, hearing grossly normal bilaterally and moist oral mucous membranes HEENT Narrative: Mallampati 2, no thrush Eyes PERRL, EOMs intact bilaterally and conjunctivae normal Neck no lymphadenopathy, supple and no JVD Resp normal respiratory effort, no retractions, no use of accessory muscles and clear to auscultation bilaterally Resp Narrative: Decreased breath sounds right base Auscultation: Negative for rales, rhonchi or wheezes Cardio regular rate, regular rhythm, S1 normal heart sound, S2 normal heart sound, no murmurs, no rub, no gallops and no clicks GI normal to inspection, nondistended, normoactive bowel sounds, soft to palpation and non-tender GI Narrative: Right lower abdomen fullness but no tenderness Extremity no clubbing, cyanosis or edema Extremity Narrative: Pedal pulses are 2+ Skin skin turgor normal, no jaundice, no petechiae and no mottling Skin Narrative: Abrasion of nose and under the left nares with no signs of infection Neuro oriented x3, CN's II-XII intact bilaterally, moves all extremities and no focal motor deficits Speech: speech normal Psych Psych Narrative: Affect is slightly flat but appropriate for the current situation, patient interacts appropriately Results Lab / Micro Data 10/05/23 12:10 10/05/23 12:10 Labs: Laboratory Results - last 24 hr 10/05/23 12:10: WBC 19.4 H, RBC 3.09 L, Hgb 7.3 L, Hct 23.8 L, MCV 77.0 L, MCH 23.6 L, MCHC 30.7 L, RDW Std Deviation 49.6 H, RDW Coeff of Sneha 18.1 H, Plt Count 557 H, MPV 9.2, Immature Gran % (Auto) 2.200 H, Neut % (Auto) 73.7 H, L ymph % (Auto) 16.7 L, Dupage % (Auto) 6.8, Eos % (Auto) 0.3, Baso % (Auto) 0.3, A bsolute Neuts (auto) 14.3 H, Absolute Lymphs (auto) 3.24, Nucleated RBC % 0, PT 16.5 H, INR 1.3, APTT 37.7 H, Sodium 138, Potassium 3.2 L, Chloride 102, Carbon Dioxide 30.0, Anion Gap 6, BUN 11, Creatinine 0.40 L, Estim Creat Clear Calc 150.90, Est GFR (MDRD) Af Amer 209, Est GFR (MDRD) Non-Af 173, BUN/Creatinine Ratio 27.3 H, Glucose 105, Lactic Acid 0.8, Calcium 8.1 L, Total Bilirubin 0.80, AST 52 H, ALT 58 H, Alkaline Phosphatase 199 H, Total Protein 5.8 L, Albumin 1.7 L, Globulin 4.1, Albumin/Globulin Ratio 0.4 L 10/05/23 12:25: Urine Color Yellow, Urine Clarity Sl. Cloudy, Urine pH 6.0, Ur Specific Ono 1.020, Urine Protein 30 H, Urine Glucose (UA) Normal, Urine Ketones 5 H, Urine Occult Blood Negative, Urine Nitrite Negative, Urine Bilirubin Negative, Urine Urobilinogen 1 H, Ur Leukocyte Esterase 25 H, Urine RBC 0 SEEN, Urine WBC 0-5 SEEN, Ur Squamous Epith Cells 0 SEEN, Urine Bacteria 3+, Urine Mucus 0 SEEN Imaging Radiology Impression Abdomen/Pelvis CT 10/05/23 11:56 IMPRESSION: Findings suggestive of abscesses in the liver as described. Several tiny cystic changes are seen within the abscesses. Contracted gallbladder with a tiny stone. Complex mass in the right adnexa. Right pleural effusion with underlying atelectasis. Electronically Signed: Anjel Campbell MD at 13:37 EDT , Chest X-Ray 10/05/23 11:56 IMPRESSION: Moderate amount of right pleural effusion with right basilar infiltration and/or atelectasis. Electronically Signed: Anjel Campbell MD at 14:01 EDT , Assessment & Plan Assessment/Plan (1) Pleural effusion, right: (2) Abscess of liver: (3) Ovarian cancer: (4) Leukocytosis: (5) Transaminitis: (6) Hypokalemia: (7) Microcytic anemia: (8) Thrombocytosis: PLAN: Plan Hepatic abscesses -Initially presumed to be metastatic deposits however upon biopsy pathology noted abscess -Continue Zosyn and add metronidazole -Discussed both with interventional radiology and with general surgery and there is no area to drain or that requires surgical intervention so antibiotics are currently the management of choice -Blood cultures are pending -Urine cultures pending -Consult infectious disease -Anticipate patient will need discharge with PICC and long-term IV antibiotics Moderate right pleural effusion with compressive atelectasis -Patient not having any significant short of breath but oxygen saturations are in the low 90s -Thoracentesis ordered for tomorrow -Fluid studies with cytology and culture to be performed -A.m. LDH ordered -Encourage aggressive incentive spirometry postthoracentesis -High risk for reoccurrence with current infectious and probable malignant process Leukocytosis -Likely related to the above -Will monitor with initiation of antibiotics -Cultures pending Microcytic anemia -Check iron studies -Check guaiac stool -Continue home iron -Patient denies any obvious signs of blood loss vaginally or rectally Transaminitis -Likely related to the above process -Monitor Coagulopathy -PTT/INR/PTT are all elevated likely related to liver process -Monitor periodically -Do not think there is any need for further workup at this time unless something changes Thrombocytosis -Likely related to infectious process +/- iron deficiency anemia -Monitor Hypokalemia -Potassium replacement ordered -Recheck in a.m. -Check a.m. magnesium and phosphorus level Weight loss -Suspect malnutrition -Consult dietitian -Add Magic cups to diet-ordered under nursing miscellaneous Right ovarian mass -Malignancy suspected -CA125 is elevated -No definitive diagnosis as of yet -Oncological follow-up after discharge -No current need for oncology involvement DVT prophylaxis -Patient is high risk -Subcu Lovenox daily CODE STATUS -Full code was verified at the time of admission Charges/Coding Visit Charges Inpatient E&M: 28201 Init Hosp L3
[2023-10-05 15:41] LABS: Ferritin 533 ng/mL (8-252); Iron 13 ug/dL (50-170); Iron Binding Capacity,Total 214 ug/dL (250-450); PERCENT IRON SATURATION 6.1 % (15.0-55.0)
[2023-10-05] MEDS: Ferrous Sulfate 325 MG Tablet PO (16:12)
[2023-10-05] MEDS: Potassium Chloride Oral Tablet 20 MEQ 40 MEQ PO (16:12)
[2023-10-05] MEDS: metroNIDAZOLE 500 MG/100 ML BAG 100 MG IV (17:22)
[2023-10-05] MEDS: 0.9% Normal Saline (250mL Bag) 250 ML 15 ML IV (17:23)
[2023-10-05] MEDS: Acetaminophen 325 MG Tablet 650 MG PO (19:37)
[2023-10-05] MEDS: Piperacil/Tazobactam 3.375 GM in 0.9% Normal Saline (50mL MB+) 50 ML IV (21:04)
[2023-10-06] VITALS (11 sets, daily range): BP systolic 119–135; BP diastolic 70–77; PULSE 92–118; RESP 16–18; TEMP 36.3–37.2; O2SAT 93–100; BMI 23.6
[2023-10-06] MEDS: metroNIDAZOLE 500 MG/100 ML BAG 100 MG IV ×3 (01:11→12:57)
[2023-10-06] MEDS: Piperacil/Tazobactam 3.375 GM in 0.9% Normal Saline (50mL MB+) 50 ML IV (06:30)
[2023-10-06 06:40] LABS: Absolute Lymphocyte Count 2.42 X10^3/uL (0.83-4.51); Absolute Neutrophil Count 16.4 X10^3/uL (2.0-7.7); Basophil# 0.08 X10^3/uL; Basophil% 0.4 % (0-1); Eosinophil# 0.19 X10^3/uL; Eosinophils% 0.9 % (0-5); Hemoglobin 7.8 g/dL (12.0-15.0); Lymphocyte # 2.42 X10^3/ul (0.83-4.51); Lymphocyte % 11.7 % (19-41); Mean Corpuscular Hgb 23.4 pg (27.0-32.0); Mean Corpuscular Volume 78.1 fL (81-99); Mean Platelet Vol. 9.5 fl (6.2-12.0); Monocyte# 1.25 X10^3/uL; Monocyte% 6.1 % (0-10); NRBC Flagged by Analyzer 0.1 % (0-5); Neutrophil # 16.35 X10^3/uL (2.7-7.7); Neutrophil % 79.3 % (47-70); Platelet Count 651 K/mm3 (150-450); RBC Distribution Width CV 18.3 % (11.6-14.6); RBC Distribution Width SD 50.3 fl (35.1-43.9); Red Blood Count 3.33 M/mm3 (4.2-5.4); White Blood Count 20.6 K/mm3 (4.4-11.0)
[2023-10-06 07:01] LABS: ALB/GLOB Ratio 0.4 RATIO (0.9-2.4); AST(SGOT) 57 U/L (15-37); Alanine Aminotransfer ALT/SGPT 61 U/L (13-56); Albumin, Serum 1.8 g/dL (3.2-5.0); Alkaline Phosphatase 261 U/L (45-117); Anion Gap 5 (5-15); BUN 10 mg/dL (7-18); Calcium,Total 8.1 mg/dL (8.5-10.1); Chloride 102 mmol/L (98-107); Creatinine, Serum 0.46 mg/dL (0.55-1.02); EST Glomerular Filtration Rate 150 mL/min (>60); Est Glom Filt Rate - Afr Amer 182 mL/min (>60); Estimated Creatinine Clearance 131.22 ml/min; Globulin 4.4 g/dL (2.2-4.2); Glucose 98 mg/dL (74-106); LDH 169 U/L (84-246); Magnesium 2.2 mg/dL (1.6-2.6); Potassium 3.4 mmol/L (3.5-5.1); Protein, Total 6.2 g/dL (6.4-8.2); Sodium Level 138 mmol/L (136-145)
[2023-10-06] MEDS: Potassium Chloride Oral Tablet 20 MEQ 40 MEQ PO (08:17)
[2023-10-06] MEDS: Enoxaparin 40 MG/0.4 ML Syringe SC (08:18)
[2023-10-06] MEDS: Ferrous Sulfate 325 MG Tablet PO ×2 (08:18→17:59)
[2023-10-06] MEDS: Lactobacillis Acidophilus 1 CAP PO (08:18)
--- NOTE | 2023-10-06 11:12 | CASEMGMT ---
Addendum entered by Dmitry Sears 10/06/23 16:13: Gail @ [facility] made aware plan is for pt to discharge home Monday w/SOC w/[facility] on Monday for next IV dose of ceftriaxone. She states will call either [facility] or Jackie GALEANA CM on Monday to ensure pt discharging Sat before they will arrange for delivery of atb/supplies to pt's home. She states they require 1-week payment @ a time of $166. She will contact pt for payment and to arrange for atb/supply delivery prior to Monday. Pt made aware. PICC has been inserted. yfn Marie email marketing assistant to send documentation to [facility] via [employer]. Addendum entered by Dmitry Sears 10/06/23 16:03: Per Dr Orr, pt will need PICC and IV ceftriaxone 2 GM daily x 26 days and Rx received. PICC ordered. Per Dr Rangel, she anticipates pt will be medically ready for discharge tomorrow. KERVIN BEATTY back to room. She was made aware of the above. Pt states would like to have olivares-checks done for HHC and declines having preference of HHC agency or Infusion company, stating whomever will be able to work w/[facility] or w/being possible self-pay. She was made aware [facility] does work w/[facility]. Also made aware of [facility], who does accept self-pay. She would also like olivares check done for HHC's and OP infusion's @ [facility] OP infusion and also [facility] OP infusion. HHC: Per Mary @ [facility], they would be able to accept. Reviewed [facility] self-pay pricing of $266/visit ($212.80/visit after 20% discount) w/pt and family. Also reviewed [facility] pricing for SN visits. Made aware HHC would come out initially for IV infusion admin education and may need to come back again for teach-back. Also made aware of weekly PICC dressing changes and lab draws. Pt and family made aware cost of lab work would be separate. [facility]: Per Gail, cost of IV ceftriaxone and supplies is $23.78/day for total cost of $618.28. [facility] OP Infusion: IV infusion: Per Анна @ [facility], cost of IV infusion daily is $400. Dr Orr states IM daily injections may also be an option. Per Анна IM ceftriaxone is $180/injection. Weekly OP PICC dressing change and lab draw would be ~ $167.14. [facility] OP Infusion: KERVIN Mejia CM, checked into this and states the person who takes care of this @ [facility] is not available until Monday. Pt and family made aware of above information/options/pricing. They chose for pt to discharge home w/[facility] w/[facility] for infusion company. Call placed to Mary @ [facility]. Script for IV ceftriaxone has been faxed to [facility]. Pt to receive IV atb on Sat @ [facility] and can discharge home afterwards. [facility] SOC scheduled for Monday for pt's next IV dose. Dr Ranegl made aware. Addendum entered by Dmitry Sears 10/06/23 15:04: Call placed to [facility]. Pt's Member ID # is: [id number] and she verifies pt active w/[facility] as of 09/21/2023. Pt's plan is Gold Level per Dora. Per Dora, authorization for benefits cannot be provided over the phone. She also states benefits/coverage for OP services after discharge from [facility] may not be covered, stating pt's current medical condition may be considered active pre-existing. They will review pt's medical records to determine if any services will be covered. If determination is made that they will cover for services, the following coverage will be considered: [facility]: Dora states, [facility] is available w/her Gold Level plan and they have seen it covered before, but again states authorization cannot be given over the phone. OP IV ATB's: IV medications would be covered under pt's plan if pt's current condition is not considered pre-existing but delivery fee would not be covered. OP infusion: Yes this would be considered if pt's current condition is not considered pre-existing PO Medictions: They would cover 90-day supply, but they do not cover for maintenance medications thereafter. Pt made aware of all of the above. Original Note: RN?CM?POCKETED SPRING ASSEMBLER?CM?to room to meet with patient for initial transition planning/care coordination?assessment.?RN?CM?introduced self and role at [facility].? Pt voices understanding and consents to?assessment?at this time.? Pt sitting on edge of bed in no distress at this time.? Pt is A/O at this time and answers all questions appropriately.??Pt is calm, flat affect. Care providers, pharmacy, and demographics verified/updated at this time. PCP: Dr Latrice Calles Specialists: Dr Ovalles- oncology Preferred Pharmacy: [facility] Insurance: [facility] [employer] ([facility]). Pt just signed on with them and active as of 09/21/2023. Pt inquiring if she may qualify for PING. Made aware [employer] group sales representative would be notified to further discuss this w/her. Prescription Benefit:?pt is not sure what benefits are through [facility] [facility]) Living Will/HPOA:? Pt does not currently have LW/HCPOA and interested in completing. She states would like to name her son, Yung Moreno ([phone]) as primary HCPOA, son Gio Moreno ([phone]) as 1st alternative, and daughter Mikki Reynoso ([phone]) as 2nd alternative. SW, Renetta, made aware. LNOK: Pt is but states, we do not have a healthy marriage. They have 5 adult children. Living Arrangements: Pt was living w/her in [place] up until a couple nights ago when she started staying w/her daughter, Nina Moreno ([phone]) in [place], and she plans to return to Nina's home @ discharge. Nina has a mobile home w/3 steps to enter. Pt is independent w/ADL's/self-care, but Nina assists w/meal preparation, as she has had a poor appetite, and Nina can assist w/other IADL's. Pt states she has been having gradual increase in weakness over the past ~ 8 weeks. Transportation:?Pt, family DME: ? Denies using any DME, but she does have a cane available. She states no need for DME @ this time. HHC/SNF: No hx of either. Discussed possible need of IV atb's @ discharge, including SNF vs HHC vs OP infusion. If IV atb's are needed @ dc, she prefers to go home to her daughter's home (Nina) w/HHC, stating she is willing to learn IV atb administration and her daughter Nina would be as well. Discussed pt's insurance and benefits. Pt is not sure what [facility] covers and depending on cost of HHC/IV atb's would determine what she decides to do @ dc. Pt wishes to return to her daughter's home (N[place]) @ discharge and states has no further concerns with going home at time of discharge. ?CM?to follow for further discharge planning/needs.?Advised pt to ask for?CM?if any further questions/concerns/needs arise.? Voices understanding. PLAN:??TBD by course of treatment. Anticipate pt will need IV atb's @ discharge. CM to follow. Calvin BSN?RN?CM
--- NOTE | 2023-10-06 11:32 | PN.HOSP_ITS ---
Reason for Visit Reason for Visit: Diagnoses Malignant neoplasm of unspecified ovary (10/05/23) Iron deficiency anemia, unspecified (10/05/23) Elevated white blood cell count, unspecified (10/05/23) Thrombocytosis, unspecified (10/05/23) Hypokalemia (10/05/23) Pleural effusion, not elsewhere classified (10/05/23) Abscess of liver (10/05/23) Elevation of levels of liver transaminase levels (10/05/23) Subjective Subjective Patient reports she is feeling about the same today, does report she now realizes that she had been short of breath at home, awaiting thoracentesis. No overt abdominal pain, no other acute complaints Objective Data Objective Data Vital Signs: Vital Signs Temp Pulse Resp BP Pulse Ox O2 Del Method O2 Flow Rate 98.9 F 106 H 18 125/72 H 98 Nasal Cannula 2 10/06/23 08:00 10/06/23 08:00 10/06/23 08:15 10/06/23 08:00 10/06/23 08:00 10/06/23 08:26 10/06/23 08:26 Oxygen Flow Rate (L/min) 2 Oxygen Delivery Method Nasal Cannula Weight: 68.3 kg Body Mass Index (BMI) 23.6 Intake & Output: Intake and Output for Last 24 Hours 10/04/23 10/05/23 10/06/23 23:59 23:59 23:59 Intake Total 200.25 / 200.25 424.5 / 424.5 Balance 200.25 / 200.25 424.5 / 424.5 Lab / Micro Data 10/06/23 05:43 10/06/23 05:43 Labs: Laboratory Results - last 24 hr 10/05/23 12:10: WBC 19.4 H, RBC 3.09 L, Hgb 7.3 L, Hct 23.8 L, MCV 77.0 L, MCH 23.6 L, MCHC 30.7 L, RDW Std Deviation 49.6 H, RDW Coeff of Sneha 18.1 H, Plt Count 557 H, MPV 9.2, Immature Gran % (Auto) 2.200 H, Neut % (Auto) 73.7 H, L ymph % (Auto) 16.7 L, [place] % (Auto) 6.8, Eos % (Auto) 0.3, Baso % (Auto) 0.3, A bsolute Neuts (auto) 14.3 H, Absolute Lymphs (auto) 3.24, Nucleated RBC % 0, PT 16.5 H, INR 1.3, APTT 37.7 H, Sodium 138, Potassium 3.2 L, Chloride 102, Carbon Dioxide 30.0, Anion Gap 6, BUN 11, Creatinine 0.40 L, Estim Creat Clear Calc 150.90, Est GFR (MDRD) Af Amer 209, Est GFR (MDRD) Non-Af 173, BUN/Creatinine Ratio 27.3 H, Glucose 105, Lactic Acid 0.8, Calcium 8.1 L, Iron 13 L, TIBC 214 L , Iron Saturation 6.1 L, Ferritin 533 H, Total Bilirubin 0.80, AST 52 H, ALT 58 H, Alkaline Phosphatase 199 H, Total Protein 5.8 L, Albumin 1.7 L, Globulin 4.1, Albumin/Globulin Ratio 0.4 L 10/05/23 12:25: Urine Color Yellow, Urine Clarity Sl. Cloudy, Urine pH 6.0, Ur Specific [place] 1.020, Urine Protein 30 H, Urine Glucose (UA) Normal, Urine Ketones 5 H, Urine Occult Blood Negative, Urine Nitrite Negative, Urine Bilirubin Negative, Urine Urobilinogen 1 H, Ur Leukocyte Esterase 25 H, Urine RBC 0 SEEN, Urine WBC 0-5 SEEN, Ur Squamous Epith Cells 0 SEEN, Urine Bacteria 3+, Urine Mucus 0 SEEN 10/06/23 05:43: WBC 20.6 H, RBC 3.33 L, Hgb 7.8 L, Hct 26.0 L, MCV 78.1 L, MCH 23.4 L, MCHC 30.0 L, RDW Std Deviation 50.3 H, RDW Coeff of Sneha 18.3 H, Plt Count 651 H, MPV 9.5, Immature Gran % (Auto) 1.600 H, Neut % (Auto) 79.3 H, L ymph % (Auto) 11.7 L, [place] % (Auto) 6.1, Eos % (Auto) 0.9, Baso % (Auto) 0.4, A bsolute Neuts (auto) 16.4 H, Absolute Lymphs (auto) 2.42, Nucleated RBC % 0.1, Sodium 138, Potassium 3.4 L, Chloride 102, Carbon Dioxide 31.0, Anion Gap 5, BUN 10, Creatinine 0.46 L, Estim Creat Clear Calc 131.22, Est GFR (MDRD) Af Amer 182, Est GFR (MDRD) Non-Af 150, BUN/Creatinine Ratio 22.0 H, Glucose 98, Calcium 8.1 L, Phosphorus 3.0, Magnesium 2.2, Total Bilirubin 0.90, AST 57 H, ALT 61 H, Alkaline Phosphatase 261 H, Lactate Dehydrogenase 169, Total Protein 6.2 L, A lbumin 1.8 L, Globulin 4.4 H, Albumin/Globulin Ratio 0.4 L Radiography Diagnostic Testing: Radiology Impression Abdomen/Pelvis CT 10/05/23 11:56 IMPRESSION: Findings suggestive of abscesses in the liver as described. Several tiny cystic changes are seen within the abscesses. Contracted gallbladder with a tiny stone. Complex mass in the right adnexa. Right pleural effusion with underlying atelectasis. Electronically Signed: Anjel Campbell MD at 13:37 EDT , Chest X-Ray 10/05/23 11:56 IMPRESSION: Moderate amount of right pleural effusion with right basilar infiltration and/or atelectasis. Electronically Signed: Anjel Campbell MD at 14:01 EDT , Physical Exam Narrative General: Alert, oriented HEENT: Atraumatic, normocephalic, scabbing under left nostril Eyes: Anicteric, normal conjunctiva, extraocular movements grossly intact Neck: Supple Respiratory: Diminished at right, normal respiratory effort Cardiovascular: Slightly tachycardic GI: Soft, no significant tenderness, no rebound, guarding, rigidity Extremities: No edema Musculoskeletal: Moving all extremities Neuro: No overt focal neurological deficits Skin: Some scabbing under left nostril Psych: Cooperative Assessment & Plan Assessment/Plan (1) Pleural effusion, right: (2) Abscess of liver: (3) Ovarian cancer: (4) Leukocytosis: (5) Transaminitis: (6) Hypokalemia: (7) Microcytic anemia: (8) Thrombocytosis: PLAN: Plan #Hepatic abscesses -Initially presumed to be metastatic deposits however upon biopsy pathology noted abscess -Elevated WBC count -Continue Zosyn and add metronidazole -This was discussed both with interventional radiology and with general surgery and there is no area to drain or that requires surgical intervention so antibiotics are currently the management of choice -Blood cultures are pending -Urine cultures pending -Consult infectious disease -Anticipate patient will need discharge with PICC and long-term IV antibiotics -10/05: White blood cell count remains elevated, patient with no new or acute complaints, blood cultures thus far no growth, no culture of abscess obtained when it was aspirated as this was intended to be a biopsy to rule out metastasis, awaiting ID evaluation, continue current antibiotics at this time #Moderate right pleural effusion with compressive atelectasis -Patient not having any significant short of breath but oxygen saturations are in the low 90s -Thoracentesis ordered for tomorrow -Fluid studies with cytology and culture to be performed -A.m. LDH ordered -Encourage aggressive incentive spirometry postthoracentesis -High risk for reoccurrence with current infectious and probable malignant process -10/05: Patient sitting up in chair on my evaluation, reports that she now realizes that she had been more short of breath at home, awaiting thoracentesis. Continue incentive spirometry, mobilize as tolerated #Microcytic anemia/thrombocytosis -Check iron studies -Check guaiac stool -Continue home iron -Patient denies any obvious signs of blood loss vaginally or rectally -10/05: Hemoglobin 7.8 today, up from 7.3, FOBT not yet collected, do not suspect acute bleed but certainly could have microscopic leading to iron deficiency. Monitoring CBC, FOBT ordered remained #Hypokalemia -Potassium replacement ordered -Recheck in a.m. -Check a.m. magnesium and phosphorus level -10/05: Further potassium replacement given, mag and Phos within normal limits #Right ovarian mass -Malignancy suspected -CA125 is elevated -No definitive diagnosis as of yet -Oncological follow-up after discharge -No current need for oncology involvement -10/05: Supportive care, will need to follow-up with oncology on discharge DVT prophylaxis -Subcu Lovenox daily Time spent in the patient's overall evaluation,decision-making process, review of diagnostic data, adjustment of management, discussion with other providers, nursing nursing and ancillary staff involved in patient's care documentation, 35 minutes Charges/Coding Visit Charges Inpatient E&M: 71887 Subs Hosp L2
--- NOTE | 2023-10-06 13:43 | CON.PCM.ID_ITS ---
Assessment & Plan Assessment/Plan (1) Abscess of liver: PLAN: Will try to add on culture to sample from 10/05/23. Bcx x1 pending. Will narrow abx to ceftriaxone iv and flagyl po, plan on 4-6 weeks abx. Will order picc and weekly labs. ID followup in 2 weeks. Will follow, thank you, d/w primary team HPI Consult Data Date of Consult: 10/06/23 HPI Narrative Reason for Consultation: liver abscess HPI Narrative: COLIN ALMEIDA, is a 58 F who presented with fatigue since 05/2023. Saw PCP, found to have abnormal liver tests. CT done 06/20/23 showed no major abnormality. Sx continued. No recent infections, procedures, dental work, or abx. CT repeated 09/24, showed liver masses, came to [facility] for biopsy 10/04, admitted for liver abscess. Now on zosyn/flagyl. Feeling ok, no abd pain, no fever or chills. Has lost about 25lb in past 4 months. Full ROS performed and neg except as noted above. [facility] Medical History Non-smoker Migraines Ovarian mass Pleural effusion Metastasis to liver Abdominal mass Home Medications ?Medication ?Instructions ?Recorded ?Last Taken ?Type biotin 1 mg capsule 1 mg PO DAILY 09/26/23 Unknown History cholecalciferol (vitamin D3) 50 50 mcg PO DAILY 09/26/23 Unknown History mcg (2,000 unit) capsule lactobacillus combination no.9 4 4,000 mmu cells PO DAILY 09/26/23 Unknown History billion cell capsule (Adult 50 Plus Probiotic) rhubarb root extract 4 mg tablet 4 mg PO DAILY 09/26/23 Unknown History (Estroven Complete Menopause Relief) turmeric 400 mg capsule 400 mg PO DAILY 09/26/23 Unknown History ferrous sulfate 325 mg (65 mg 325 mg PO BID 09/27/23 Unknown History iron) tablet (FeroSul) hormone balance 2 tab PO DAILY 09/27/23 Unknown History potassium 99 mg tablet 99 mg PO BID 09/27/23 Unknown History magnesium citrate 10/05/23 Unknown History ceftriaxone 2 gram intravenous 2 g IV DAILY 26 days 10/06/23 Unknown Rx solution Allergy/AdvReac Type Severity Reaction Status Date / Time No Known Allergies Allergy Verified 10/05/23 11:39 Family History Mother Cancer uterine Social History Smoking Status: Never smoker alcohol intake: never substance use type: does not use what type of physical activity do you participate in: walking Physical Exam Const alert, oriented x3 and no apparent distress General Appearance: cooperative HEENT normocephalic and head/scalp atraumatic Eyes PERRL and EOMs intact bilaterally Neck supple and No nodes Resp normal air movement and clear to auscultation bilaterally Cardio regular rate and regular rhythm GI soft to palpation, non-tender and non-distended Extremity General Extremity: Negative for edema Skin no rashes or lesions noted Neuro CN's II-XII intact bilaterally Medical Records Data Medical Nutrition Assessment Dietitian: Malnutrition Criteria Met Start: 10/06/23 11:40 Freq: Status: Active Protocol: Document 10/06/23 11:40 SLA (Rec: 10/06/23 11:40 SLA [id number]) Nutrition Malnutrition Evidence of Malnutrition Exists Yes Malnutrition (severe): Chronic Evidenced By Suboptimal Energy Intake ( Severe),Weight Loss (Severe) Clinical Problem Chronic Disease or Condition Related Malnutrition Etiology related to inadequate energy intake Signs/Symptoms as evidenced by ~15% unintentional wt loss and po intake meeting <75% of est nutritional needs x past 4-5 months. Status Active Problem Recommendation Dietitian Recommendations/Changes Continue liberal regular diet w/ magic up at lunch and dinner Add 4 oz ensure plus high protein at medpass 3x/day for increased nutrition if consumed Lab / Micro Data Attestation: I reviewed the patient's lab results. 10/06/23 05:43 10/06/23 05:43 Labs: Laboratory Results - last 24 hr 10/05/23 12:10: Iron 13 L, TIBC 214 L, Iron Saturation 6.1 L, Ferritin 533 H 10/06/23 05:43: WBC 20.6 H, RBC 3.33 L, Hgb 7.8 L, Hct 26.0 L, MCV 78.1 L, MCH 23.4 L, MCHC 30.0 L, RDW Std Deviation 50.3 H, RDW Coeff of Sneha 18.3 H, Plt Count 651 H, MPV 9.5, Immature Gran % (Auto) 1.600 H, Neut % (Auto) 79.3 H, L ymph % (Auto) 11.7 L, [place] % (Auto) 6.1, Eos % (Auto) 0.9, Baso % (Auto) 0.4, A bsolute Neuts (auto) 16.4 H, Absolute Lymphs (auto) 2.42, Nucleated RBC % 0.1, Sodium 138, Potassium 3.4 L, Chloride 102, Carbon Dioxide 31.0, Anion Gap 5, BUN 10, Creatinine 0.46 L, Estim Creat Clear Calc 131.22, Est GFR (MDRD) Af Amer 182, Est GFR (MDRD) Non-Af 150, BUN/Creatinine Ratio 22.0 H, Glucose 98, Calcium 8.1 L, Phosphorus 3.0, Magnesium 2.2, Total Bilirubin 0.90, AST 57 H, ALT 61 H, Alkaline Phosphatase 261 H, Lactate Dehydrogenase 169, Total Protein 6.2 L, A lbumin 1.8 L, Globulin 4.4 H, Albumin/Globulin Ratio 0.4 L Micro: Microbiology 10/05/23 12:25 Urine, Clean Catch Urine Culture - Preliminary Culture exhibits no growth. Imaging Radiology Impression Chest X-Ray 10/05/23 11:56 IMPRESSION: Moderate amount of right pleural effusion with right basilar infiltration and/or atelectasis. Electronically Signed: Anjel Campbell MD at 14:01 EDT ,
--- NOTE | 2023-10-06 14:00 | CASEMGMT ---
TC to [facility] to obtain pricing of picc dressing change weekly and lab draw. Spoke with Dinorah in child care lead teacher who states the person who handles package plans is not present today and will be back Monday. She states this is not a typical package plan and she could not give an estimate until Monday. She is aware plan is for pt to dc prior to then. Updated MS3 RN CM.
--- NOTE | 2023-10-06 14:18 | CASEMGMT ---
Addendum entered by Cynthia Wilson 10/06/23 15:14: PICC report and H&P sent to [facility]. Cynthia Wilson DC Planning Asst. Original Note: Discharge Planning Clinical updates sent via [facility] to [facility]. Cynthia Wilson DC Planning Asst.
[2023-10-06] MEDS: Lidocaine 2% (20 ml mdv) 20 ML Vial INFILT (14:23)
--- NOTE | 2023-10-06 14:30 | FLU_PTH ---
PATIENT: COLIN ALMEIDA LOC: MS3 U#:[id number] AGE/SX: 58/F ROOM: [facility] RE10/05/[address]: Dr. Yadira Rangel MD : 1965 BED: 1 DIS: 10/07/2023 SPEC #: [id number] RECD: 10/06/23 14:53 STATUS: ANSHU REQ #: [id number] DEONTE: 10/06/23 14:[address]: Yadira Rangel DEPT: CYTOLOGY RECD BY: Yulia Byers ENTERED: 10/09/23 07:43 SP TYPE: Fluid OTHR DR: DO Dr. Daniel Torres MD Rachel Edgar, ELECTRONIC ENGRAVER-C Tissues: Pleural fluid, NOS Procedures: Special Stain Group II Surgery Specimen Level IV Cytospin Fluid HEADER OPERATION: Ultrasound guided thoracentesis PRE-OP DIAGNOSIS: Pleural effusion TISSUE SUBMITTED: Thoracentesis fluid for cytology DIAGNOSIS CYTOLOGY Thoracentesis fluid for cytology (cytospin and cellblock): Negative for malignant cells. Acute inflammation. See comment. VICTORINO/ 10/10/2023 COMMENT Correlation with clinical, radiologic findings and appropriate follow up are necessary. Please make reference to previous specimen [id number] liver, CT guided core biopsy with diagnosis of liver parenchymal tissue with extensive acute inflammation and abscess formation. CYTOLOGY STUDY Slides are reviewed. CYTOLOGY GROSS Received is 85 ml of nannette-cloudy fluid labeled with the patient's name and and designated per the requisition as Thoracentesis fluid. Submitted for cytology preparation including cell block. Mr 10/09/2023 TC:2 CPT: 44031,51331
--- NOTE | 2023-10-06 14:34 | PRO.PCM_ITS ---
Procedure Report Date of Procedure: 10/06/23 Assessment & Plan Assessment/Plan (1) Pleural effusion, right: PLAN: PROCEDURE: Ultrasound Guided Thoracentesis ORDERING PROVIDER: Dr. Mary Ellen Radford INDICATION: Female, 58 years old. Right pleural effusion. PROVIDER: DOUG Jara PROCEDURE: The risks, benefits, and alternatives to the procedure were explained to the patient. The specific risks of bleeding, infection, and pneumothorax requiring chest tube insertion were discussed and accepted. Written informed consent was obtained. The patient was placed in the sitting, upright position. Ultrasonographic evaluation of the bilateral lower pleural spaces was carried out. An adequate pocket was identified in the right lower pleural space.The overlying skin was prepped and draped in sterile fashion. 2% lidocaine was administered subcutaneously for local anesthesia. Under ultrasound guidance, a 5-Lithuanian thoracentesis needle/catheter system was advanced into the right posterior lower pleural fluid collection. 950 ml of cloudy nannette colored fluid was drained. 100 mL of this fluid was collected and sent to laboratory for analysis. The catheter was removed, and a sterile dressing was applied. The patient tolerated the procedure well. A chest x-ray was ordered. IMPRESSION: Successful ultrasound-guided thoracentesis of right pleural effusion. Procedures Radiology Radiology US Procedures: [id number] Thoracentesis
--- NOTE | 2023-10-06 14:34 | RAD_ITS ---
STUDY: X-RAY CHEST REASON FOR EXAM: Female, 58 years old. Post thora TECHNIQUE: AP inspiration and expiration views. COMPARISON: Comparison is made with prior study dated October 05, 2023. FINDINGS: The patient status post right thoracentesis. No evidence of pneumothorax. Minimal atelectasis is seen at the right lung base. RAD/Chest Insp/Exp 2 View IMPRESSION: Status post right thoracentesis. No evidence of pneumothorax. Mild right basilar linear atelectasis. Electronically Signed: Anjel Campbell MD at 14:45 EDT ,
[2023-10-06 14:54] LABS: Cytology, Body Fluid / CSF SEE PATHOLOGY REPORT
[2023-10-06] MEDS: metroNIDAZOLE 500 MG Tablet PO ×2 (14:57→21:18)
[2023-10-06] MEDS: Ceftriaxone 2 GM in 0.9% Normal Saline (50mL MB+) 50 ML IV (14:57)
[2023-10-06 15:13] LABS: Body Fluid Mononuclear WBC # 0.766 10^3/uL; Body Fluid Mononuclear WBC % 26.6 %; Body Fluid Polynuclear WBC # 2.111 10^3/uL; Body Fluid Polynuclear WBC % 73.4 %; Body Fluid Total Cells Counted 2.932 10^3/ul; Red Cell Count/Body Fluid 0.008 10^6/ul; White Blood Count/Body Fluid 2.877 10^3/uL
[2023-10-06 15:15] LABS: Auto B Fluid Analyzer BKGD Ct COUNTS W/IN LIMITS (W/IN LIMITS)
[2023-10-06 15:16] LABS: Appearance/Body Fluid CLOUDY; Color/Body Fluid YELLOW; Source- Body Fluid THORACENTESIS
--- NOTE | 2023-10-06 16:06 | CASEMGMT ---
Social Work SW attempted to meet with pt to discuss advance directives. Pt discreetly informing SW she does not want to discuss this while pt is in the room and requested SW return at a later time. SW will follow up as time allows. LEANDRO Haines
[2023-10-06 17:13] LABS: Lymphocytes 4 %; Macrophages 7 %; Monocytes 22 %; Neutrophil (Segs) 53 %
[2023-10-06 17:14] LABS: Mesothelial Cells 14 %
[2023-10-06 17:15] LABS: Body Fluid QC Type(s) BF1Q
[2023-10-06] MEDS: Acetaminophen 325 MG Tablet 650 MG PO (17:58)
[2023-10-06 18:16] LABS: Glucose, Body Fluid 116 mg/dL (40-70); LDH,Body Fluid 124 Units/L (Not Establ.); Protein, Body Fluid 3.4 g/dL (Not Establ.)
[2023-10-06] MEDS: 0.9% Saline Lock 10 ML Syringe IV (21:17)
[2023-10-07 02:00] VITALS: BP 139/80; PULSE 98; RESP 16; TEMP 36.7; O2SAT 100
[2023-10-07] MEDS: Acetaminophen 325 MG Tablet 650 MG PO (05:10)
[2023-10-07] MEDS: metroNIDAZOLE 500 MG Tablet PO (05:10)
[2023-10-07 06:00] VITALS: BMI 23.6
[2023-10-07 06:21] LABS: Absolute Lymphocyte Count 3.65 X10^3/uL (0.83-4.51); Absolute Neutrophil Count 17.1 X10^3/uL (2.0-7.7); Basophil# 0.07 X10^3/uL; Basophil% 0.3 % (0-1); Eosinophil# 0.27 X10^3/uL; Eosinophils% 1.2 % (0-5); Hematocrit 27.6 % (37-47); Hemoglobin 8.1 g/dL (12.0-15.0); Lymphocyte # 3.65 X10^3/ul (0.83-4.51); Mean Corp Hgb Conc 29.3 g/dL (32-36); Mean Corpuscular Hgb 22.8 pg (27.0-32.0); Mean Corpuscular Volume 77.7 fL (81-99); Mean Platelet Vol. 9.3 fl (6.2-12.0); Monocyte# 1.26 X10^3/uL; Monocyte% 5.5 % (0-10); NRBC Flagged by Analyzer 0 % (0-5); Neutrophil # 17.05 X10^3/uL (2.7-7.7); Neutrophil % 74.9 % (47-70); Platelet Count 728 K/mm3 (150-450); RBC Distribution Width CV 18.5 % (11.6-14.6); RBC Distribution Width SD 51.6 fl (35.1-43.9); Red Blood Count 3.55 M/mm3 (4.2-5.4); White Blood Count 22.8 K/mm3 (4.4-11.0)
[2023-10-07 06:48] LABS: ALB/GLOB Ratio 0.4 RATIO (0.9-2.4); AST(SGOT) 25 U/L (15-37); Alanine Aminotransfer ALT/SGPT 43 U/L (13-56); Albumin, Serum 1.9 g/dL (3.2-5.0); Alkaline Phosphatase 207 U/L (45-117); Anion Gap 3 (5-15); BUN 10 mg/dL (7-18); BUN/Creat Ratio 21.3 RATIO (10-20); Calcium,Total 8.3 mg/dL (8.5-10.1); Chloride 101 mmol/L (98-107); Creatinine, Serum 0.47 mg/dL (0.55-1.02); EST Glomerular Filtration Rate 145 mL/min (>60); Est Glom Filt Rate - Afr Amer 176 mL/min (>60); Estimated Creatinine Clearance 128.42 ml/min; Globulin 4.5 g/dL (2.2-4.2); Glucose 117 mg/dL (74-106); Potassium 3.4 mmol/L (3.5-5.1); Protein, Total 6.4 g/dL (6.4-8.2); Sodium Level 135 mmol/L (136-145)
[2023-10-07 08:00] VITALS: BP 120/79; PULSE 98; RESP 16; TEMP 37; O2SAT 95
[2023-10-07] MEDS: Ensure Plus High Protein 120 ML LIQUID PO (08:33)
[2023-10-07] MEDS: Potassium Chloride Oral Tablet 20 MEQ 40 MEQ PO (08:33)
[2023-10-07] MEDS: Enoxaparin 40 MG/0.4 ML Syringe SC (08:34)
[2023-10-07] MEDS: Lactobacillis Acidophilus 1 CAP PO (08:34)
[2023-10-07] MEDS: Ferrous Sulfate 325 MG Tablet PO (08:34)
[2023-10-07] MEDS: Ceftriaxone 2 GM in 0.9% Normal Saline (50mL MB+) 50 ML IV (10:37)
[2023-10-07 11:01] VITALS: O2SAT 94
--- NOTE | 2023-10-07 11:33 | PCM.DC ---
Discharge Instructions Diet Discharge Diet: No restrictions Activity Discharge Activity: - (Increase activity as tolerated) Follow Up Care Test Results: Test results from this visit will be discussed in further detail at your follow-up appointment, if applicable. Discharge Plan Admission Admit Date/Time: 10/05/23 14:37 Primary Reason for Your Visit: Liver abscess Attending Provider: Yadira Rangel Primary Care Provider: Latrice Calles Consulting Providers: Daniel Orr; Mary Ellen Radford Instructions Patient Instructions: RAD RN Thoracentesis Dc, Caring for Your PICC Dc Additional Instructions / Restrictions: DISCHARGE INSTRUCTIONS PLEASE READ *Please take this with you to your next doctors appointment* -You will be discharged with a PICC line for your antibiotics, routine PICC care -You will be discharged on ceftriaxone 2 g IV daily with a stop date of 11/01/2023, it is advised that a weekly BMP and CBC are drawn and results faxed to [phone] to monitor your labs -You will also be discharged on of 100 mg of metronidazole 3 times a day -Strongly recommend against drinking alcohol while on metronidazole as the combination can cause nausea, vomiting, racing heart, and flushing of the face. Avoid alcohol for at least 3 days after last dose of metronidazole. -Please follow-up with Dr. Orr, the antibiotic doctor, upon discharge. Please call their office to schedule hospital follow-up appointment upon discharge. -Please follow-up with a hematology oncology doctor, Dr. Ovalles, upon discharge -Please call your primary care provider's office upon discharge to schedule a hospital follow up within 1 week. -For any concerning signs or symptoms please call 911 or proceed to the nearest emergency department Discharge Orders/Prescriptions Prescriptions: New ceftriaxone 2 gram recon soln 2 g IV DAILY 26 Days Rx Instructions: dx: liver abscess. Stop date 11/01/23. weekly bmp and cbc. Fax to [phone]. Routine picc care per protocol. metronidazole 500 mg tablet 500 mg PO TID 26 Days Qty: 78 0RF Rx Instructions: no alcohol while on this antibiotic Continued hormone balance 2 tab PO DAILY potassium 99 mg tablet 99 mg PO BID ferrous sulfate [FeroSul] 325 mg (65 mg iron) tablet 325 mg PO BID Adult 50 Plus Probiotic 4 billion cell capsule 4,000 mmu cells PO DAILY Rx Instructions: administer with a meal biotin 1 mg capsule 1 mg PO DAILY Estroven Cmplt Menopause Rlf 4 mg tablet 4 mg PO DAILY turmeric 400 mg capsule 400 mg PO DAILY cholecalciferol (vitamin D3) 50 mcg (2,000 unit) capsule 50 mcg PO DAILY magnesium citrate Patient Comments: strength unknown, states it is drops Referrals / Follow Up: Antony Ovalles MD [Med Staff - Active Staff] - Daniel Orr MD [Med Staff - Active Staff] - ( -Please follow-up with Dr. Orr upon discharge. Please call their office to schedule hospital follow-up appointment upon discharge.) Latrice Calles NP-C [Primary Care Provider] - Within 1 Week Disposition Disposition (needs filled in before D/C Order can be placed): Home Health Service
--- NOTE | 2023-10-07 11:48 | DS.PCM_ITS ---
Providers Date of Admission: 10/05/23 Date of Discharge: 10/07/23 Primary Care Physician: CIERRA Stephen Consultations 10/05/23 15:46 Consult: Infectious Disease Routine Consulting Provider: Daniel Orr Reason for Consult: Liver abscess EMERGENT Consult: No MD Notified: Yes Date Notified: 10/05/23 Time Notified: 16:15 Method of Notification: Text Reason For Visit: HEPATIC ABSCESS Diagnosis Discharge Diagnosis (1) Pleural effusion, right: Status: Acute Code(s): J90 - Pleural effusion, not elsewhere classified (2) Abscess of liver: Status: Acute Code(s): K75.0 - Abscess of liver Plan #Hepatic abscesses #Moderate right pleural effusion with compressive atelectasis #Microcytic anemia/thrombocytosis #Hypokalemia #Right ovarian mass Medications at Discharge Home Medications biotin 1 mg capsule 1 mg PO DAILY 09/26/23 cholecalciferol (vitamin D3) 50 mcg (2,000 unit) capsule 50 mcg PO DAILY 09/26/23 lactobacillus combination no.9 4 billion cell capsule (Adult 50 Plus Probiotic) 4,000 mmu cells PO DAILY 09/26/23 rhubarb root extract 4 mg tablet (Estroven Complete Menopause Relief) 4 mg PO DAILY 09/26/23 turmeric 400 mg capsule 400 mg PO DAILY 09/26/23 ferrous sulfate 325 mg (65 mg iron) tablet (FeroSul) 325 mg PO BID 09/27/23 hormone balance 2 tab PO DAILY 09/27/23 potassium 99 mg tablet 99 mg PO BID 09/27/23 magnesium citrate 10/05/23 ceftriaxone 2 gram intravenous solution 2 g IV DAILY 26 days 10/06/23 metronidazole 500 mg tablet 500 mg PO TID 26 days #78 tabs 10/06/23 Hospital Course Procedures - (PICC) Summary of Care Provided Minutes Spent on Discharge: 32 Hospital Course: 58-year-old female history of ovarian mass of undetermined etiology, anemia/thrombocytosis who presented to [facility] ED 10/05/2023 after she had biopsy of liver lesion that was found to be pus. She was advised to go to the hospital for admission for IV antibiotics and infectious disease consultation. Patient was also found to have a moderate right pleural effusion and had thoracentesis with cytology pending. For her hepatic abscesses IR and surgery were contacted prior to admission and did not feel there was anything that warranted aspiration or drainage, they were able to find specimen from biopsy to attempt to run for culture and this order was placed. ID also evaluated and ordered PICC line and 6 weeks of IV antibiotics and will tailor these based on culture results. Patient overall feeling well on day of discharge with no new or acute complaints. Breathing improved after thoracentesis. Discharge instructions as follows: -You will be discharged with a PICC line for your antibiotics, routine PICC care -You will be discharged on ceftriaxone 2 g IV daily with a stop date of 11/01/2023, it is advised that a weekly BMP and CBC are drawn and results faxed to [phone] to monitor your labs -You will also be discharged on of 100 mg of metronidazole 3 times a day -Strongly recommend against drinking alcohol while on metronidazole as the combination can cause nausea, vomiting, racing heart, and flushing of the face. Avoid alcohol for at least 3 days after last dose of metronidazole. -Please follow-up with Dr. Orr, the antibiotic doctor, upon discharge. Please call their office to schedule hospital follow-up appointment upon discharge. -Please follow-up with a hematology oncology doctor, Dr. Ovalles, upon discharge -Please call your primary care provider's office upon discharge to schedule a hospital follow up within 1 week. -For any concerning signs or symptoms please call 911 or proceed to the nearest emergency department Physical Exam Narrative General: Alert, oriented HEENT: Atraumatic, normocephalic, scabbing under left nostril Eyes: Anicteric, normal conjunctiva, extraocular movements grossly intact Neck: Supple Respiratory: Improved aeration on right Cardiovascular: Slightly tachycardic GI: Soft, no significant tenderness, no rebound, guarding, rigidity Extremities: No edema Musculoskeletal: Moving all extremities Neuro: No overt focal neurological deficits Skin: Some scabbing under left nostril Psych: Cooperative Medical Records Data Medical Nutrition Assessment Dietitian: Malnutrition Criteria Met Start: 10/06/23 11:40 Freq: Status: Active Protocol: Document 10/06/23 11:40 SLA (Rec: 10/06/23 11:40 SLA [id number]) Nutrition Malnutrition Evidence of Malnutrition Exists Yes Malnutrition (severe): Chronic Evidenced By Suboptimal Energy Intake ( Severe),Weight Loss (Severe) Clinical Problem Chronic Disease or Condition Related Malnutrition Etiology related to inadequate energy intake Signs/Symptoms as evidenced by ~15% unintentional wt loss and po intake meeting <75% of est nutritional needs x past 4-5 months. Status Active Problem Recommendation Dietitian Recommendations/Changes Continue liberal regular diet w/ magic up at lunch and dinner Add 4 oz ensure plus high protein at medpass 3x/day for increased nutrition if consumed Weight / BMI Weight Weight: 68.3 kg Body Mass Index (BMI) 23.6 ABG / Lab / Microbiology Data 10/07/23 05:30 10/07/23 05:50 Laboratory: Laboratory Results - last 24 hr 10/06/23 14:30: Fluid Source THORACENTESIS, Fluid Color YELLOW, Fluid Appearance CLOUDY, Fluid WBC 2.877, Fluid RBC 0.008, Fluid Tot Cell Count 2.932 H, Fld Polynuclear WBCs # 2.111, Fld Polynuclear WBCs % 73.4, Fluid Mononuclear WBCs 0.766, Fld Mononuclear WBCs % 26.6, Fluid Neutrophils 53, Fluid Lymphocytes 4, Fluid Monocytes 22, Fluid Macrophages 7, Fld Mesothelial Cells 14, Fl Pathologist Comment May follow, Fluid Glucose 116 H, Fluid Total Protein 3.4, Fluid LDH 124, Fluid Comment 2 SEE COMMENT 10/07/23 05:30: WBC 22.8 H, RBC 3.55 L, Hgb 8.1 L, Hct 27.6 L, MCV 77.7 L, MCH 22.8 L, MCHC 29.3 L, RDW Std Deviation 51.6 H, RDW Coeff of Sneha 18.5 H, Plt Count 728 H, MPV 9.3, Immature Gran % (Auto) 2.100 H, Neut % (Auto) 74.9 H, L ymph % (Auto) 16.0 L, [place] % (Auto) 5.5, Eos % (Auto) 1.2, Baso % (Auto) 0.3, A bsolute Neuts (auto) 17.1 H, Absolute Lymphs (auto) 3.65, Nucleated RBC % 0 10/07/23 05:50: Sodium 135 L, Potassium 3.4 L, Chloride 101, Carbon Dioxide 31.0, Anion Gap 3 L, BUN 10, Creatinine 0.47 L, Estim Creat Clear Calc 128.42, Est GFR (MDRD) Af Amer 176, Est GFR (MDRD) Non-Af 145, BUN/Creatinine Ratio 21.3 H, Glucose 117 H, Calcium 8.3 L, Total Bilirubin 0.60, AST 25, ALT 43, Alkaline Phosphatase 207 H, Total Protein 6.4, Albumin 1.9 L, Globulin 4.5 H, A lbumin/Globulin Ratio 0.4 L Microbiology: Microbiology 10/06/23 14:30 Fluid - Pleural (Lung) Body Fluid Culture - Preliminary No growth-Final to follow 10/05/23 12:25 Urine, Clean Catch Urine Culture - Final Culture exhibits no growth. Radiography Diagnostic Testing: Radiology Impression Chest X-Ray 10/06/23 14:34 IMPRESSION: Status post right thoracentesis. No evidence of pneumothorax. Mild right basilar linear atelectasis. Electronically Signed: Anjel Campbell MD at 14:45 EDT Reading Location ID and State: [facility] / [place] , Service support , D/C Instructions Discharge Diet: No restrictions Meaningful Use Info Meaningful Use Meaningful Use Diagnoses (Choose all that apply): None applicable Ischemic Stroke Statin Dosing Therapy Reference: STATIN DOSE THERAPY REFERENCE: * Patients > 75 years receive moderate or high dose statin therapy. * Patients 75 years or YOUNGER should receive HIGH intensity statin dose unless contraindicated. You will be required to document reason for non-treatment if statin daily dose does not meet guidelines. HIGH DOSE STATIN THERAPY DAILY Atorvastatin > than or = to 40 mg Rosuvastatin > than or = to 20 mg Amlodipine + Atorvastatin > than or = to 2.5/40 mg Ezetimibe + Simvastatin 10/80 mg Simvastatin 80mg Discharge Plan Admission Admit Date/Time: 10/05/23 14:37 Primary Reason for Your Visit: Liver abscess Attending Provider: Yadira Rangel Primary Care Provider: Latrice Calles Consulting Providers: Daniel Orr; Mary Ellen Radford Instructions Patient Instructions: ELIO RN Thoracentesis Dc, Caring for Your PICC Dc Additional Instructions / Restrictions: DISCHARGE INSTRUCTIONS PLEASE READ *Please take this with you to your next doctors appointment* -You will be discharged with a PICC line for your antibiotics, routine PICC care -You will be discharged on ceftriaxone 2 g IV daily with a stop date of 11/01/2023, it is advised that a weekly BMP and CBC are drawn and results faxed to [phone] to monitor your labs -You will also be discharged on of 100 mg of metronidazole 3 times a day -Strongly recommend against drinking alcohol while on metronidazole as the combination can cause nausea, vomiting, racing heart, and flushing of the face. Avoid alcohol for at least 3 days after last dose of metronidazole. -Please follow-up with Dr. Orr, the antibiotic doctor, upon discharge. Please call their office to schedule hospital follow-up appointment upon discharge. -Please follow-up with a hematology oncology doctor, Dr. Ovalles, upon discharge -Please call your primary care provider's office upon discharge to schedule a hospital follow up within 1 week. -For any concerning signs or symptoms please call 911 or proceed to the nearest emergency department Discharge Orders/Prescriptions Prescriptions: New ceftriaxone 2 gram recon soln 2 g IV DAILY 26 Days Rx Instructions: dx: liver abscess. Stop date 11/01/23. weekly bmp and cbc. Fax to [phone]. Routine picc care per protocol. metronidazole 500 mg tablet 500 mg PO TID 26 Days Qty: 78 0RF Rx Instructions: no alcohol while on this antibiotic Continued hormone balance 2 tab PO DAILY potassium 99 mg tablet 99 mg PO BID ferrous sulfate [FeroSul] 325 mg (65 mg iron) tablet 325 mg PO BID Adult 50 Plus Probiotic 4 billion cell capsule 4,000 mmu cells PO DAILY Rx Instructions: administer with a meal biotin 1 mg capsule 1 mg PO DAILY Estroven Cmplt Menopause Rlf 4 mg tablet 4 mg PO DAILY turmeric 400 mg capsule 400 mg PO DAILY cholecalciferol (vitamin D3) 50 mcg (2,000 unit) capsule 50 mcg PO DAILY magnesium citrate Patient Comments: strength unknown, states it is drops Referrals / Follow Up: Antony Ovalles MD [Med Staff - Active Staff] - Daniel Orr MD [Med Staff - Active Staff] - ( -Please follow-up with Dr. Orr upon discharge. Please call their office to schedule hospital follow-up appointment upon discharge.) Latrice aClles, [id number] [Primary Care Provider] - Within 1 Week Disposition Disposition (needs filled in before D/C Order can be placed): Home Health Service Charges/Coding Visit Charges Inpatient E&M: 12109 Disch Hosp >30min
[2023-10-09 10:34] LABS: Pathologist Comment/Body Fluid Reviewed
== END 2023-10-07 12:58 | disposition home health service (06) | DRG 441 ==
LOC: ED 12:13 → MS3 14:58
PROVIDERS: Admitting Provider Internal Medicine; Emergency Provider Emergency Medicine; PCP Nurse Practitioner Family; Visit Provider Internal Medicine
DX: K75.0 Abscess of liver (principal); E43 Unspecified severe protein-calorie malnutrition; J90 Pleural effusion, not elsewhere classified; J98.11 Atelectasis; D50.9 Iron deficiency anemia, unspecified; E87.6 Hypokalemia; D75.838 Other thrombocytosis; Z68.23 Body mass index [BMI] 23.0-23.9, adult; N83.8 Other noninflammatory disorders of ovary, fallopian tube and broad ligament; Z79.899 Other long term (current) drug therapy
CPT/HCPCS: 32555; 36415; 36569; 51702; 71046; 74177; 80053; 81001; 82728; 82945; 83540; 83550; 83605; 83615; 83735; 84100; 84157; 85025; 85610; 85730; 87040; 87070; 87075; 87077; 87086; 87186; 87205; 88108; 88305; 88313; 89050; 93005; 94668; 97161; 97530; 97802; 99252; 99285; J7030; J7050; Q9967; A4216; G0463; J0696

== ENCOUNTER → 2023-10-05 | Outpatient (CLI) | payer SELFPAY ==
[2023-10-05] VITALS (14 sets, daily range): BP systolic 104–136; BP diastolic 59–91; PULSE 98–109; RESP 16–18; TEMP 37.3; O2SAT 92–97; BMI 24.3
--- NOTE | 2023-10-05 | ASPIGT_PTH ---
PATIENT: COLIN ALMEIDA LOC: [facility] U#:[id number] AGE/SX: 58/F ROOM: RE10/05/[address]: Dr. Antony Ovalles MD : 1965 BED: DIS: 10/05/2023 SPEC #: [id number] RECD: 10/05/23 11:00 STATUS: ANSHU REQ #: [id number] DEONTE: 10/05/23 00:[address]: Antony Ovalles DEPT: SURGICAL PATHOLOGY RECD BY: Yulia Byers ENTERED: 10/05/23 11:25 SP TYPE: ASP RAD OTHR DR: Latrice Calles, MANAGER ASSEMBLY-C Tissues: Liver, NOS Procedures: FNA Specimen Adequacy Special Stain Group II Special Stain Group I Surgery Specimen Level IV Surgery Specimen Level V AFB Stain (control) GMS Stain (control) Imprint (control) HEADER OPERATION: Liver biopsy PRE-OP DIAGNOSIS: Liver mass TISSUE SUBMITTED: 18 gauge x 4 cores MICROSCOPIC DIAGNOSIS Liver, CT guided core biopsy: Liver parenchymal tissue with extensive acute inflammation and abscess formation. Negative for malignancy. See comment. VICTORINO/ 10/06/2023 COMMENT The specimen is evaluated at the time of biopsy by Dr. Li. Immediate Evaluation = Acute inflammation and abscess formation noted. Mildly atypical hepatocytes noted. Liver architecture distorted due to presence of acute inflammation and abscess formation. Special stains for acid fast bacilli and fungi are negative for organisms. Reticulin, trichrome, iron, PAS with and without diastase stains are also used in the evaluation of the specimen. Iron stain show absent iron. All stains are performed with appropriate matched controls. Rebiopsy of the lesion is suggested for clinically indicated. Case has been reviewed in consultation with Dr. Castillo who concurs with the above diagnosis. IDC:AM MICROSCOPIC DESCRIPTION Slides are reviewed. GROSS DESCRIPTION Received in fixative is one container labeled with the patient's name and designated Liver CT guided core biopsy. The specimen consists of multiple fragments of chen soft tissue measuring in aggregate 1.0 x 0.5 x 0.1cm. Four touch imprints are prepared at the time of core biopsy. The entire specimen is submitted in one cassette. 10/05/2023 TC:2 CPT:47239,11704,94402e1, 59954 x5
[2023-10-05 09:13] LABS: Platelet Count 662 K/mm3 (150-450)
[2023-10-05 09:26] LABS: International Normalized Ratio 1.3; Prothrombin Time (Protime)PT. 16.5 SECONDS (11.7-14.9)
[2023-10-05] MEDS: 0.9% Normal Saline (250mL Bag) 250 ML 15 ML IV (10:25)
[2023-10-05] MEDS: Midazolam 2 MG/2 ML Syringe IV ×2 (10:25→10:43)
[2023-10-05] MEDS: fentaNYL 100 MCG/2 ML Ampul IV (10:27)
[2023-10-05] MEDS: Lidocaine 2% (20 ml mdv) 20 ML Vial INFILT (10:45)
--- NOTE | 2023-10-05 11:00 | PRO.PCM_ITS ---
Procedure Report Date of Procedure: 10/05/23 Assessment & Plan Assessment/Plan (1) Metastasis to liver: PLAN: PROCEDURE: CT DIRECTED CORE LIVER BIOPSY ORDERING PROVIDER: Dr. Ovalles INDICATION: Female, 58 years old. Liver mass. PROVIDER: DOUG Jara CONSENT: Written informed consent was obtained having explained the risks, benefits and alternatives in detail with the patient who accepted the risks and agreed to proceed. Laboratory review and clinical assessment was performed. PRE-PROCEDURE SEDATION ASSESSMENT: Current history and physical dictated by referring provider and reviewed. No clinical changes since date of exam. Patient has a Mallampati Score of Class 1 and ASA Class of 2. PROCEDURAL SEDATION PROTOCOL: The Drugs used were: 2 mg Versed, IV, and 50 mcg Fentanyl, IV. The sedation time was: 30 minutes, starting at 1025 and terminated at 1055. The procedural sedation protocol was independently monitored by the department nurse. RADIATION DOSAGE (If Supplied By Facility): CTDIvol = 14.47 mGy, DLP = 207.48 mGycm Individualized dose optimization techniques were used for this CT. TECHNIQUE: The patient was placed in a left lateral decubitus position. Using CT image guidance with image documentation, the mass in the right lobe of the liver was identified and targeted. The skin surface was prepped with betadine and draped in a sterile fashion. 2% lidocaine was used for local anesthesia. Using a la teral approach, puncture of the liver was uneventful with an 18-gauge core needle system. 5, 18-gauge core samples were obtained, and submitted in formalin to the pathologist for further assessment. The needle was removed. An occlusive sterile dressing was applied. Patient tolerated the procedure well, and returned to the [facility] bay for nursing monitoring. IMPRESSION: 1. CT directed core needle biopsy of the liver mass, using CT image guidance with image documentation as described. 2. Procedural Sedation protocol utilized with independent monitoring. Procedures Radiology Radiology CT Procedures: 49272 Biopsy Liver Multi Select Codes Radiology Radiology CT Procedures: [id number] CT guidance parenchymal tissue
--- NOTE | 2023-10-05 11:20 | NURSING ---
PATIENT REMAINS TACHYCARDIC, IS FLUSHED, AND IS REQUIRING OXYGEN TO MAINTAIN OXYGEN SATURATION ABOVE 90%. CALLED AND SPOKE WITH JANET ALMEIDA, WOULD LIKE PATIENT TO BE SEEN IN ER. SPOKE WITH PATIENT AND FAMILY, THEY VERBALIZE UNDERSTANDING AND ARE AGREEABLE TO GO TO ER. ER GIVEN REPORT. PATIENT TRANSPORTED TO ER.
== END | disposition home or self-care (01) ==
LOC: CT 08:53
PROVIDERS: Nurse Practitioner Acute Care; PCP Nurse Practitioner Family; Referring Provider Internal Medicine Hematology & Oncology; Visit Provider Internal Medicine Hematology & Oncology
DX: K75.0 Abscess of liver (principal); B17.9 Acute viral hepatitis, unspecified
CPT/HCPCS: 47000; 36415; 77012; 85049; 85610; 85730; 88172; 88305; 88307; 88312; 88313; 99156; 99157; J7050

== ENCOUNTER 2023-10-16 12:56 | Outpatient (RCR) | payer SELFPAY ==
[2023-10-16 13:30] LABS: Hemoglobin 9.3 g/dL (12.0-15.0); Mean Corp Hgb Conc 29.1 g/dL (32-36); Mean Corpuscular Hgb 24.5 pg (27.0-32.0); Mean Corpuscular Volume 84.4 fL (81-99); Mean Platelet Vol. 8.9 fl (6.2-12.0); POSITIVE MORPHOLOGY YES; Platelet Count 676 K/mm3 (150-450); RBC Distribution Width CV 22.8 % (11.6-14.6); Red Blood Count 3.79 M/mm3 (4.2-5.4); White Blood Count 12.7 K/mm3 (4.4-11.0)
[2023-10-16 13:40] LABS: Anion Gap 10 (5-15); BUN 10 mg/dL (7-18); BUN/Creat Ratio 16.1 RATIO (10-20); Calcium,Total 9.3 mg/dL (8.5-10.1); Chloride 102 mmol/L (98-107); Creatinine, Serum 0.62 mg/dL (0.55-1.02); EST Glomerular Filtration Rate 105 mL/min (>60); Est Glom Filt Rate - Afr Amer 127 mL/min (>60); Glucose 102 mg/dL (74-106); Potassium 3.7 mmol/L (3.5-5.1); Sodium Level 138 mmol/L (136-145)
[2023-10-16 13:46] LABS: Scan Indicated on CBC? Y/N YES- FLAGS NOTED
== END 2023-10-21 23:59 ==
LOC: LABSPEC 12:56
PROVIDERS: PCP Nurse Practitioner Family; Referring Provider Internal Medicine Infectious Disease; Visit Provider Internal Medicine Infectious Disease
DX: K75.0 Abscess of liver (principal)
CPT/HCPCS: 80048; 85027